=== PATIENT | female | born 1980 | race Caucasian/White ===

== ENCOUNTER 2017-02-24 00:49 | Emergency (ER) | payer BC, SELFPAY | END 2017-02-24 01:45 | disposition home or self-care (01) | PROVIDERS: Emergency Provider Emergency Medicine; Family Provider Nurse Practitioner Family; Visit Provider Emergency Medicine | DX: K11.5 Sialolithiasis (principal); K11.20 Sialoadenitis, unspecified | CPT/HCPCS: 99282 ==

== ENCOUNTER 2017-05-25 15:11 | Emergency (ER) | payer BC, SELFPAY ==
[2017-05-25 15:34] VITALS: BP 126/75; PULSE 95; RESP 20; TEMP 37.2; O2SAT 98; BMI 35.2
[2017-05-25 15:45] LABS: UTC Influenza A Antigen Negative (Negative); UTC Influenza B Antigen Negative (Negative); UTC Strep Screen (Rapid) Negative (Negative)
--- NOTE | 2017-05-25 15:45 | HMH.EDUTC ---
[facility] [place] Clinical Impression: Viral upper respiratory illness Disposition: Home, Self-Care Condition on Discharge: Good Instructions: DI for Viral Upper Respiratory Infection -- Adult, DI for Cough -- Adult Additional Instructions: * Monitor Temp. Tylenol and/or Ibuprofen as needed. ER if fever is no less than 101 despite alternating Tylenol and Ibuprofen * Encourage fluids, water, Gatorade, powerade, pedialyte if infant/toddler/or child * Warm salt water gargles for throat irritation *Warm fluids *Sore throat lozenges *Sleep elevated *humidifier or vaporizer Lots of rest Increase fluids, water, Gatorade, powerade *Your throat swab was sent to lab for culture. Those results area typically sent to your primary care physician. Be sure to follow up in 2-3 days if no improvement so they can review those results and treat if necessary If you dont have primary care I recommend you get one, but in the mean time you will have to return to a walk in clinic Follow up IMMEDIATELY for new or worsening of symptoms OR no noticeable improvement over the next 48-72 hours. 911 immediately for any life threatening symptoms such as chest pain or difficulty breathing Prescriptions: Dextromethorphan Polistirex [Delsym] 10 ml PO Q12H PRN #350 kevin.er.12h PRN Reason: Cough Referrals: Mary Beth Cm APRN [Primary Care Provider] - (in 24 - 48 hours if no improvement or worsening of symptoms) Time of Disposition: 15:52 Medical Decision Making - Medical Records Medical records reviewed: Yes: I reviewed the patient's medical records. - Felipe Inquiry Pt receiving controlled substance: No Felipe was queried for this patient: No Vital Signs: 05/25/17 15:34 Temperature 98.9 F Temperature Source Oral Pulse Rate [Right Brachial] 95 H Respiratory Rate 20 Blood Pressure [Right Arm] 126/75 Blood Pressure Mean [Right Arm] 92 Blood Pressure Source [Right Arm] Automatic Cuff Blood Pressure Position [Right Arm] Sitting 02 Sat by Pulse Oximetry 98 Oxygen Delivery Method Room Air - Lab Data Lab results reviewed: Yes: I reviewed the patient's lab results. Lab Results 05/25/17 15:18: Influenza Type A Ag Negative, Influenza Type B Ag Negative, Strep Scn Rapid Clinic Negative [facility] [place] - General Stated complaint: sore throat, body aches, cough Time Seen by Provider: 05/25/17 15:40 Mode of Arrival: Family Vehicle Source of Information: Patient Limitations: No Limitations Description of Symptoms (Recalled from Triage Doc. by RN): C/OI BODY ACHES,STOMACHACHE, SORE THROAT, HEADACHE, EAR PAIN HEENT Symptoms (Recalled from RN notes): Yes Resp Symptoms (Recalled from RN notes): Yes Skin Symptoms (Recalled from RN notes): No MS Symptoms (Recalled from RN notes): Yes Functional Status (Recalled from RN notes): N/A - History of Present Illness Provider Complaint: Patient state that she has been having body aches, chills, sore throat and cough now for several days that has not improved State that she was worried that she may have the flu. State that she has also been having some nausea along with headache and pain on and off in her ears - Related Data Home Medications Medication Instructions Recorded Confirmed clindamycin HCl 300 mg capsule PO 5 Days #20 05/23/17 levonorgestrel 20 mcg/24 hr (5 1 insert INTRAUTERI ONCE 05/23/17 years) intrauterine device Previous Rx's Medication Instructions Recorded Dextromethorphan Polistirex 10 ml PO Q12H PRN #350 kevin.er.12h 05/25/17 [Delsym] Allergies Allergy/AdvReac Type Severity Reaction Status Date / Time diphenhydramine Allergy Mild Verified 05/23/17 11:11 [DIPHENHYDRAMINE] hydrocodone [From LORTAB] Allergy Mild Verified 05/23/17 11:11 Penicillins [PENICILLINS] Allergy Mild Verified 05/23/17 11:11 tuberculin, purified protein Allergy Mild Verified 05/23/17 11:11 deriva [TUBERCULIN, PURIFIED PROTEIN DERIVA] - Worker's Comp Is t
--- NOTE | 2017-05-25 15:49 | ED_ITS ---
[facility] [place]: Viral upper respiratory illness Disposition: Home, Self-Care Condition on Discharge: Good Instructions: DI for Viral Upper Respiratory Infection -- Adult, DI for Cough - - Adult Additional Instructions: * Monitor Temp. Tylenol and/or Ibuprofen as needed. ER if fever is no less than 101 despite alternating Tylenol and Ibuprofen * Encourage fluids, water, Gatorade, powerade, pedialyte if /toddler/or child * Warm salt water gargles for throat irritation *Warm fluids *Sore throat lozenges *Sleep elevated *humidifier or vaporizer Lots of rest Increase fluids, water, Gatorade, powerade *Your throat swab was sent to lab for culture. Those results area typically sent to your primary care physician. Be sure to follow up in 2-3 days if no improvement so they can review those results and treat if necessary If you don? t have primary care I recommend you get one, but in the mean time you will have to return to a walk in clinic Follow up IMMEDIATELY for new or worsening of symptoms OR no noticeable improvement over the next 48-72 hours. 911 immediately for any life threatening symptoms such as chest pain or difficulty breathing Prescriptions: Dextromethorphan Polistirex [Delsym] 10 ml PO Q12H PRN #350 kevin.er.12h PRN Reason: Cough Referrals: Mary Beth Cm APRN [Primary Care Provider] - (in 24 - 48 hours if no improvement or worsening of symptoms) Time of Disposition: 15:52 Medical Decision Making - Medical Records Medical records reviewed: Yes: I reviewed the patient's medical records. - Felipe Inquiry Pt receiving controlled substance: No Felipe was queried for this patient: No Vital Signs: 05/25/17 15:34 Temperature 98.9 F Temperature Source Oral Pulse Rate [Right Brachial] 95 H Respiratory Rate 20 Blood Pressure [Right Arm] 126/75 Blood Pressure Mean [Right Arm] 92 Blood Pressure Source [Right Arm] Automatic Cuff Blood Pressure Position [Right Arm] Sitting 02 Sat by Pulse Oximetry 98 Oxygen Delivery Method Room Air - Lab Data Lab results reviewed: Yes: I reviewed the patient's lab results. Lab Results 05/25/17 15:18: Influenza Type A Ag Negative, Influenza Type B Ag Negative, Strep Scn Rapid Clinic Negative [facility] [place] - General Stated complaint: sore throat, body aches, cough Time Seen by Provider: 05/25/17 15:40 Mode of Arrival: Family Vehicle Source of Information: Patient Limitations: No Limitations Description of Symptoms (Recalled from Triage Doc. by RN): C/OI BODY ACHES, STOMACHACHE, SORE THROAT, HEADACHE, EAR PAIN HEENT Symptoms (Recalled from RN notes): Yes Resp Symptoms (Recalled from RN notes): Yes Skin Symptoms (Recalled from RN notes): No MS Symptoms (Recalled from RN notes): Yes Functional Status (Recalled from RN notes): N/A - History of Present Illness Provider Complaint: Patient state that she has been having body aches, chills, sore throat and cough now for several days that has not improved State that she was worried that she may have the flu. State that she has also been having some nausea along with headache and pain on and off in her ears - Related Data Home Medications Medication Instructions Recorded Confirmed clindamycin HCl 300 mg capsule PO 5 Days #20 05/23/17 levonorgestrel 20 mcg/24 hr (5 1 insert INTRAUTERI ONCE 05/23/17 years) intrauterine device Previous Rx's
[2017-05-25 16:11] VITALS: BP 124/75; PULSE 90; RESP 20; TEMP 37.1; O2SAT 98
== END 2017-05-25 16:12 | disposition home or self-care (01) ==
PROVIDERS: Emergency Provider Nurse Practitioner; Family Provider Nurse Practitioner Family; PCP Nurse Practitioner Family
DX: J06.9 Acute upper respiratory infection, unspecified (principal); F17.210 Nicotine dependence, cigarettes, uncomplicated; Z88.0 Allergy status to penicillin; Z88.6 Allergy status to analgesic agent
CPT/HCPCS: 87804; 87880; 99202

== ENCOUNTER → 2018-03-03 14:04 | Outpatient (CLI) | payer BC, SELFPAY ==
--- NOTE | 2018-03-03 14:07 | XR_ITS ---
XR knee RT 3V Ordering Physician: Ahsan Charles MD Patient Age: 37 years: Female HISTORY: ITS.REASON: RT ANTERIOR PAIN Injury bowling Saturday night felt pop posterior knee pain. TECHNIQUE: Right knee 3 view COMPARISON :Right knee 09/22/2012 FINDINGS Suggestion of small joint effusion suprapatella bursa. Joint spaces fairly well maintained at both medial lateral compartment on this nonweightbearing film but there is some mild sharpening the joint margins- particularly the medial compartment and superior margin patella . This may reflect early degenerative changes.\ No fracture.No dislocation.Bones well mineralized. Compared to 2013 right knee radiograph appears the patient has lost a significant weight. Less adipose. The knee itself appears stable. There may be a new subtle joint effusion today . IMPRESSION: No no fracture nor dislocation. Joint spaces well-maintained sharp joint margins; and scant early marginal osteophyte formation Suspect small joint effusion I believe now evident. & Was not seen on September 2012 study
== END ==
PROVIDERS: PCP Internal Medicine Adolescent Medicine; Visit Provider Internal Medicine Adolescent Medicine
DX: M25.561 Pain in right knee (principal)
CPT/HCPCS: 73562

== ENCOUNTER → 2018-07-08 07:42 | Outpatient (CLI) | payer BC, SELFPAY ==
--- NOTE | 2018-07-08 07:47 | US_ITS ---
US abdomen complete HISTORY: Left-sided abdominal pain ITS.REASON: ABD PAIN ORDERING PHYSICIAN: Mary Beth Cm APRN PATIENT AGE: 38 years COMPARISON: None FINDINGS: PANCREAS:The pancreas is poorly demonstrated and may be better evaluated with CT if clinically desired LIVER:No focal liver lesions demonstrated. Homogeneous echogenicity. No intrahepatic biliary ductal dilatation evident RIGHT KIDNEY:Unremarkable. Normal size and echogenicity. No hydronephrosis LEFT KIDNEY:Unremarkable. No hydronephrosis. Normal size and echogenicity. GALLBLADDER:Prior cholecystectomy. Common bile duct is mildly prominent at 6 mm but may be related to the postcholecystectomy changes AORTA:No evidence of aneurysmal dilatation. SPLEEN:Unremarkable. Normal size and echogenicity ASCITES:None demonstrated. IMPRESSION: Prior cholecystectomy otherwise negative ultrasound the abdomen. The pancreas is not well demonstrated and may be better evaluated with CT if clinically desired
== END ==
PROVIDERS: PCP Nurse Practitioner Family; Visit Provider Nurse Practitioner Family
DX: R10.9 Unspecified abdominal pain (principal)
CPT/HCPCS: 76700

== ENCOUNTER → 2018-08-12 13:03 | Outpatient (POV) | payer BC, SELFPAY | PROVIDERS: Visit Provider Dermatology | DX: Z00.00 Encounter for general adult medical examination without abnormal findings (principal) ==

== ENCOUNTER → 2018-09-02 07:56 | Outpatient (POV) | payer BC, SELFPAY | PROVIDERS: Visit Provider Dermatology | DX: Z00.00 Encounter for general adult medical examination without abnormal findings (principal) ==

== ENCOUNTER → 2018-09-09 15:14 | Outpatient (POV) | payer BC, SELFPAY | PROVIDERS: Visit Provider Dermatology | DX: Z00.00 Encounter for general adult medical examination without abnormal findings (principal) ==

== ENCOUNTER → 2020-01-08 09:24 | Outpatient (CLI) | payer BC, SELFPAY ==
--- NOTE | 2020-01-08 09:30 | CT_ITS ---
PROCEDURE: CT SOFT TISSUE NECK W CON CLINICAL HISTORY: SIALOADENITIS PAIN RIGHT SIDE OF NECK,,ALOS HX OF SKIN CANCER REMOVAL RIGHT NECK,,SIALOADENITIS COMPARISON: No exams were available for comparison TECHNIQUE: Oral Contrast: None IV Contrast: 75 mL Isovue 370 Axial images obtained with sagittal and coronal reformats. All CT scans at the facility use one or more dose reduction, viz: automated exposure control, ma/kV adjustment per patient size (including targeted exams where dose is matched to indication, i.e. head), or iterative reconstruction technique. FINDINGS: There is mild prominence of the nasopharyngeal mucosa on both sides. Significant artifact is present from patient's dental work. Mild hypertrophy of the lingual tonsils with some increased density between the epiglottis and the base of the tongue which could be due to mucous which is un cleared. Please correlate with direct visualization. There are few scattered small cervical lymph nodes. No evidence of adenopathy. No obvious sialoliths. There is some mild heterogeneous enhancement of the right parotid gland which may be related to sialadenitis. Small nodes are present along the anterior and posterior aspect of both parotid glands. Submandibular glands have an unremarkable appearance. The thyroid gland and glottic area are unremarkable. The lung apices are clear. IMPRESSION: Mild heterogeneous enhancement of the right parotid gland which may be seen with sialadenitis. No sialoliths apparent. No abscess or dominant adenopathy. Increased density between the base of the tongue and the epiglottic area possibly related to a combination of lymphoid hyperplasia and mucous. Direct visualization may confirm Dictated by: Ryder Fernandez MD 01/09/2020 09:57 Ryder Fernandez MD in [place] 01/09/2020 09:57
== END ==
PROVIDERS: PCP Nurse Practitioner Family; Visit Provider Otolaryngology
DX: K11.20 Sialoadenitis, unspecified (principal)
CPT/HCPCS: 70491; Q9967

== ENCOUNTER 2021-12-17 11:52 | Emergency (ER) | payer BC, SELFPAY ==
[2021-12-17 12:05] VITALS: BP 131/77; PULSE 93; RESP 19; TEMP 37; O2SAT 99; BMI 36.7
--- NOTE | 2021-12-17 12:26 | EXP.UTC ---
Discharge Plan Disposition Patient Disposition: Home, Self-Care Condition: Good Prescriptions Prescriptions: New prednisone 20 mg tablet 20 mg PO BID Qty: 10 0RF benzonatate 100 mg capsule 100 mg PO TID PRN (Reason: cough) Qty: 30 0RF No Action levonorgestrel [Mirena] 20 mcg/24 hr (5 years) intrauterine device 1 insert INTRAUTERI ONCE Viibryd 40 mg tablet 40 mg PO Label Comments: TAKE 1 TABLET BY MOUTH EVERY DAY escitalopram oxalate 10 mg tablet 10 mg PO Label Comments: TAKE 1 TABLET BY MOUTH EVERY DAY bupropion HCl 300 mg tablet extended release 24 hr 300 mg PO Referrals Follow up/Referrals: Mary Beth Cm APRN [Primary Care Provider] - See instructions Activity Restrictions/Add. Instructions Additional Instructions/Restrictions: *Monitor Temp, Over the counter Motrin or Tylenol as directed/as needed Tylenol every 4 hours and Motrin every 6 hours (as long as your family doctor has told you that you can take it) for fever or pain. and straight to ER if unable to lower temp less than 101.0 after medication given *Warm salt water gargles may help to soothe the throat *Throat Lozenges? *Warm fluids like tea with honey may help to soothe the throat? *Sleep elevated *Humidifier/Vaporizer Continue taking Augmentin Start oral steriods Return if needed Follow up IMMEDIATELY for new or worsening symptoms or no Noticeable improvement over the next 48-72 hours. 911 for difficulty breathing or swallowing You were tested for today for COVID19 your test result should be back in the next 24-48 hours, you may check your results on the [facility] Clinical Impressions Clinical Impression: Sinusitis Qualifiers: Sinusitis location: unspecified location Chronicity: unspecified Qualified Code(s): J32.9 - Chronic sinusitis, unspecified Stand Alone Forms Stand Alone Forms: Work/School Release Instructions Patient Instructions: Sinusitis, DI for Sinusitis Discharge ED Provider: Stephenie Munson [facility] [place] HPI General Stated complaint: Head/chest congestion, SOA Mode of Arrival: Ambulatory Source of Information: Patient Limitations: No Limitations Time Seen by Provider: 12/17/21 12:26 Description of Symptoms (Recalled from Triage Doc. by RN): PATIENT C/O SINUS INFECTION THAT STARTED 10 DAYS AGO. SHE FINISHED HER ANTIBIOTICS 3 DAYS BUT IS FEELING WORSE AND NOW HAS A COUGH HEENT Symptoms (Recalled from RN notes): Yes Resp Symptoms (Recalled from RN notes): Yes Skin Symptoms (Recalled from RN notes): No MS Symptoms (Recalled from RN notes): No Functional Status (Recalled from RN notes): WNL History of Present Illness Provider Complaint: Patient states that she started with about 10 days ago with sinus infection and seen her PCP this week and was prescribed antiobiotics and has been on them about 3 days and was given a steriod injection but not feeling any better States that her sinus pressure has continued to get worse so today when she was still not feeling any better she came in Related Data Home Medications Medication Instructions Recorded Confirmed levonorgestrel 20 mcg/24 hours (8 1 insert intrauterine ONCE 05/23/17 07/28/21 yrs) 52 mg intrauterine device (Mirena) vilazodone 40 mg tablet (Viibryd) 40 mg PO 01/23/21 07/28/21 bupropion HCl 300 mg 24 hr tablet, 300 mg PO 07/28/21 07/28/21 extended release escitalopram oxalate 10 mg tablet 10 mg PO 07/28/21 07/28/21 Previous Rx's Medication Instructions Recorded benzonatate 100 mg capsule 100 mg PO TID PRN cough #30 caps 12/17/21 prednisone 20 mg tablet 20 mg PO BID #10 tabs 12/17/21 Allergies Allergy/AdvReac Type Severity Reaction Status Date / Time diphenhydramine Allergy Mild Verified 07/28/21 09:29 [DIPHENHYDRAMINE] hydrocodone [From LORTAB] Allergy Mild Verified 07/28/21 09:29 Penicillins [PENICILLINS] Allergy Mild Verified 07/28/21 09:29 tuberculin, purifie
[2021-12-17 12:42] VITALS: BP 131/77; PULSE 93; RESP 19; TEMP 37; O2SAT 99
[2021-12-17 12:49] LABS: Adenovirus,PCR Not Detected (NotDetected); Bordetella Pertussis Not Detected (NotDetected); Chlamydophila Pneumoniae, PCR Not Detected (NotDetected); Coronavirus 19, PCR Not Detected (NotDetected); Coronavirus 229E Not Detected (NotDetected); Coronavirus NL63 Not Detected (NotDetected); Coronavirus OC43 Not Detected (NotDetected); Coronovirus HKU1,PCR Not Detected (NotDetected); Human Metapneumovirus Not Detected (NotDetected); Influenza A, PCR Not Detected (NotDetected); Influenza AH1, 2009 Not Detected (NotDetected); Influenza AH1, PCR Not Detected (NotDetected); Influenza AH3,PCR Not Detected (NotDetected); Influenza B, PCR Not Detected (NotDetected); Mycoplasma Pneumoniae, PCR Not Detected (NotDetected); Parainfluenza 1, PCR Not Detected (NotDetected); Parainfluenza 2, PCR Not Detected (NotDetected); Parainfluenza 3, PCR Not Detected (NotDetected); Parainfluenza 4, PCR Not Detected (NotDetected); Respiratory Syncytial Virus Not Detected (NotDetected)
[2021-12-17 14:10] LABS: Rhinovirus/Enterovirus Detected (NotDetected)
== END 2021-12-17 12:47 | disposition home or self-care (01) ==
PROVIDERS: Emergency Provider Nurse Practitioner; PCP Nurse Practitioner Family
DX: J32.9 Chronic sinusitis, unspecified (principal); B34.1 Enterovirus infection, unspecified
CPT/HCPCS: 87581; 87632; 87798; 99212; C9803; G0463; U0003; U0005

== ENCOUNTER 2022-04-09 05:01 | Emergency (ER) | payer BC, SELFPAY ==
[2022-04-09 05:02] VITALS: BP 123/71; PULSE 90; RESP 20; TEMP 37.2; O2SAT 99; BMI 35.4
[2022-04-09 05:13] VITALS: BMI 35.4
--- NOTE | 2022-04-09 05:14 | CT_ITS ---
PROCEDURE INFORMATION: Exam: CT Abdomen And Pelvis With Contrast Exam date and time: 04/09/2022 6:33 AM Age: 41 years old Clinical indication: Abdominal pain; Generalized; Patient HX: Abd pain, nausea, vomiting, diarrhea TECHNIQUE: Imaging protocol: Computed tomography of the abdomen and pelvis with contrast. Radiation optimization: All CT scans at this facility use at least one of these dose optimization techniques: automated exposure control; mA and/or kV adjustment per patient size (includes targeted exams where dose is matched to clinical indication); or iterative reconstruction. Contrast material: ISOVUE; Contrast volume: 75 ml; Contrast route: IV; Other protocol: This patient has received 0 known CTs and 0 known cardiac nuclear medicine studies in the 12 months prior to the current study. COMPARISON: [facility] US abdomen complete 07/08/2018 7:57 AM FINDINGS: Tubes, catheters and devices: An intrauterine device is present. Lungs: The visualized portions of the lung bases are normal. Heart: There is a 1 cm calcification posterior to the right venous confluence of the left atrium on image 1 suggesting remote granulomatous disease. Liver: There is diffuse mild enlargement of the liver measuring 19 cm sharply defined 1 cm cyst is seen in liver is segment 3 on coronal image 33. There is a similar likely cyst of the right segment 5 on image 3:37. There is a small region of focal fatty infiltration adjacent to the falciform ligament. There is no suggestion of of the liver pathology. Gallbladder and bile ducts: There has been a cholecystectomy. Pancreas: The pancreas is normal. Spleen: The spleen demonstrates punctate calcifications, consistent with remote granulomatous organism exposure. The spleen is otherwise normal. An accessory splenule is present. Adrenal glands: The adrenal glands are normal. Kidneys and ureters: The kidneys are normal. There is no evidence of hydronephrosis. No calculi are identified. Stomach and bowel: Mild diverticulosis is present in the sigmoid and descending colon. There has been a gastric stapling and bypass. There is moderate increase in bowel fluid particularly evident in the right and transverse colon. There is no evidence of wall thickening or surrounding fat stranding to suggest colitis, however. Appendix: A normal appendix is identified. Intraperitoneal space: There is no free intraperitoneal air. Vasculature: Unremarkable. No abdominal aortic aneurysm. Lymph nodes: Unremarkable. No enlarged lymph nodes. Urinary bladder: Unremarkable as visualized. Reproductive: Unremarkable as visualized. Bones/joints: There is pedicle screw fixation at L5-S1 with disc spacer appropriately located.Surgical instrumentation is in stable position and shows no evidence of complications. There are mild degenerative changes of the hip joints. There is no evidence of fracture or destructive process. Soft tissues: Unremarkable. IMPRESSION: 1. There is no evidence of fracture or destructive process. 2. There is moderate increase in bowel fluid particularly evident in the right and transverse colon. There is no evidence of wall thickening or surrounding fat stranding to suggest colitis, however. 3. There is diffuse mild enlargement of the liver measuring 19 cm sharply defined 1 cm cyst is seen in liver is segment 3 on coronal image 33. There is a similar likely cyst of the right segment 5 on image 3:37. There is a small region of focal fatty infiltration adjacent to the falciform ligament. There is no suggestion of of the liver pathology.
[2022-04-09 05:21] LABS: Microscopic, Urine URINE MICROSCOPIC (MICROSCOPIC)
[2022-04-09 05:26] LABS: Appearance,Urine CLEAR (Clear); Blood, Urine Negative (Negative); Color,Urine YELLOW (Yellow); Glucose,Urine (UA) Negative (Negative); Ketones,Urine Negative (Negative); Leukocyte Esterase,Urine Negative (Negative); Nitrate,Urine POSITIVE (Negative); Protein,Urine Negative (Negative); Specific Gravity, Urine >= 1.030 (1.005-1.030); Urobilinogen,Urine 0.2 EU/dl (0.2)
[2022-04-09 05:27] LABS: Urine Pregnancy, HCG Qual. Negative (Negative)
[2022-04-09 05:28] LABS: Bacteria,Urine 2+ /lpf; Bilirubin,Urine 1+ (Negative)
[2022-04-09 05:41] LABS: MANUAL DIFFERENTIAL MANUAL DIFFERENTIAL (MANUAL DIFF)
[2022-04-09 05:42] LABS: Basophils # 0.1 K/mm3 (0-0.2); Basophils % 0.4 % (0.1-2.0); Eosinophils # 0.2 K/mm3 (0.0-0.4); Eosinophils % 1.3 % (0.1-12.0); Hematocrit 40.6 % (37.0-47.0); Hemoglobin 13.1 g/dL (12.2-16.2); Lymphocytes # 1.9 K/mm3 (0.7-4.5); Lymphocytes % 10.5 % (10-50); Mean Corpuscular HGB Conc 32.3 g/dL (31.8-35.4); Mean Corpuscular Hemoglobin 26.9 pg (27.0-31.2); Mean Corpuscular Volume 83.4 fl (81-99); Mean Platelet Volume 8.3 fl (7.4-10.4); Monocytes # 0.6 K/mm3 (0.1-1.0); Monocytes % 3.5 % (1.7-9.3); Neutrophils # 15.5 K/mm3 (1.8-7.8); Neutrophils % 84.3 % (37.0-80.0); Platelet Count 381 K/mm3 (142-424); Red Blood Count 4.87 M/mm3 (4.20-5.40); Red Cell Distribution Width 15.9 % (11.5-17.5); White Blood Count 18.4 K/mm3 (4.8-10.8)
[2022-04-09 05:53] LABS: Alanine Aminotransferase 14 U/L (12-78); Albumin Level 4.3 g/dl (3.5-5.0); Albumin/Globulin Ratio 1.3 (1.1-1.8); Alkaline Phosphatase 59 U/L (38-126); Amylase 95 U/L (30-110); Aspartate Amino Transferase 21 U/L (14-36); Bilirubin,Total 0.4 mg/dl (0.2-1.3); Blood Urea Nitrogen 17 mg/dl (7-17); Calcium 8.8 mg/dl (8.4-10.2); Carbon Dioxide 20 mmol/L (22.0-30.0); Chloride 112 mmol/L (98-107); Creatinine Clearance Estimated 157 mL/min (50-200); Estimated Glomerular Filt Rate 79 ml/min (>60); GFR (African American) 95 ML/MIN (>60); Globulin 3.3 g/dL (1.3-3.2); Glucose 120 mg/dl (74-100); Lipase 88 U/L (23-300); Sodium 138 mmol/L (136-145); Total Protein,Serum 7.6 g/dl (6.3-8.2)
[2022-04-09 05:56] LABS: Lymphocytes % 13 % (10-50); Monocytes % 3 % (2-9); Neutrophils % 84 % (42-76); Total Cells Counted 100
[2022-04-09 05:57] LABS: Hypochromasia 1+; Platelet Estimate Normal
[2022-04-09 05:58] LABS: C-Reactive Protein 2.9 mg/L (0-4)
--- NOTE | 2022-04-09 06:32 | PC.NURSE ---
Pt gone to RAD via wheelchair
--- NOTE | 2022-04-09 06:38 | PC.NURSE ---
Pt back from RAD
[2022-04-09 06:44] VITALS: BP 127/66; PULSE 77; O2SAT 100
[2022-04-09 06:44] LABS: Erythrocyte Sedimentation Rate 13 mm/hr (0-20)
--- NOTE | 2022-04-09 06:44 | PC.NURSE ---
Rechecked pt condition. No needs voiced. Pt advised that she was feeling much better.
--- NOTE | 2022-04-09 06:48 | PC.NURSE ---
Dr. Mackay at BS speaking with pt
--- NOTE | 2022-04-09 06:50 | HMH.EDNVD ---
Discharge Plan Disposition Patient Disposition: Home, Self-Care Prescriptions Prescriptions: New ondansetron 4 mg tablet,disintegrating 4 mg PO Q6H PRN (Reason: nausea and vomiting) Qty: 20 0RF No Action levonorgestrel [Mirena] 20 mcg/24 hr (5 years) intrauterine device 1 insert INTRAUTERI ONCE Viibryd 40 mg tablet 40 mg PO Label Comments: TAKE 1 TABLET BY MOUTH EVERY DAY escitalopram oxalate 10 mg tablet 10 mg PO Label Comments: TAKE 1 TABLET BY MOUTH EVERY DAY bupropion HCl 300 mg tablet extended release 24 hr 300 mg PO prednisone 20 mg tablet 20 mg PO BID Qty: 10 0RF benzonatate 100 mg capsule 100 mg PO TID PRN (Reason: cough) Qty: 30 0RF Referrals Follow up/Referrals: Mary Beth Cm APRN [Primary Care Provider] - See instructions Clinical Impressions Clinical Impression: Gastroenteritis Instructions Patient Instructions: DI for Diarrhea and Traveler's Diarrhea -- Adult, DI for Nausea -- Adult Discharge ED Provider: Thompson (ED)Ney Nausea/Vomiting/Diarrhea HPI General Chief complaint: Nausea/Vomiting/Diarrhea Stated complaint: vomiting, diarrhea, stomach pain Time Seen by Provider: 04/09/22 06:40 Mode of Arrival: Ambulatory Source of Information: Patient Limitations: No Limitations Description of Symptoms (Recalled from ER Triage Doc. by RN): pt CO/N/V/D since 129 the pt states that she had gastric sleeve 7 years ago and gall bladder removed as well. History of Present Illness HPI Narrative: pt with acute vomiting and watery diarrhea this am - hx of child with same - MD complaint: nausea, vomiting, diarrhea and abdominal pain Onset (ago): hour(s) Description of Diarrhea: water Associated Abdominal Pain: Yes Location of pain: diffuse Severity: moderate Quality: cramping Consistency: intermittent Context: sick contacts Associated symptoms: denies other symptoms Related Data Home Medications Medication Instructions Recorded Confirmed levonorgestrel 21 mcg/24 hours (8 1 insert intrauterine ONCE 05/23/17 07/28/21 yrs) 52 mg intrauterine device (Mirena) vilazodone 40 mg tablet (Viibryd) 40 mg PO 01/23/21 07/28/21 bupropion HCl 300 mg 24 hr tablet, 300 mg PO 07/28/21 07/28/21 extended release escitalopram oxalate 10 mg tablet 10 mg PO 07/28/21 07/28/21 Previous Rx's Medication Instructions Recorded benzonatate 100 mg capsule 100 mg PO TID PRN cough #30 caps 12/17/21 prednisone 20 mg tablet 20 mg PO BID #10 tabs 12/17/21 ondansetron 4 mg disintegrating 4 mg PO Q6H PRN nausea and 04/09/22 tablet vomiting #20 tabs Allergies Allergy/AdvReac Type Severity Reaction Status Date / Time diphenhydramine Allergy Mild Verified 07/28/21 09:29 [DIPHENHYDRAMINE] hydrocodone [From LORTAB] Allergy Mild Verified 07/28/21 09:29 Penicillins [PENICILLINS] Allergy Mild Verified 07/28/21 09:29 tuberculin, purified protein Allergy Mild Verified 07/28/21 09:29 deriva [TUBERCULIN, PURIFIED PROTEIN DERIVA] [facility] Disclaimer: The information contained in this section may have been updated after the patient was seen, as this information can be updated by other users. Medical History (Updated 04/09/22 @ 08:18 by Ney Mackay ([email or web address])MD) Anxiety Depression Encounter for gastric sleeve procedure History of gastroesophageal reflux (GERD) Migraine Surgical History (Updated 12/17/21 @ 12:21 by Yuni Giron RN) History of back surgery History of section History of cholecystectomy History of tonsillectomy Social History (Updated 12/17/21 @ 12:21 by Yuni Giron RN) Smoking Status: Current every day smoker alcohol intake: never substance use type: denies use current occupational status: employed Travel in the last 8 weeks: None housing: house ROS Obtained: Yes All systems reviewed & no additional complaints except as documented Physical Exam General Ge
[2022-04-09 07:01] VITALS: BP 122/60; PULSE 101; O2SAT 100
--- NOTE | 2022-04-09 07:57 | PC.NURSE ---
DR WOLFE AT BEDSIDE
[2022-04-09 08:25] VITALS: BP 122/52; PULSE 68; RESP 18; TEMP 36.6
[2022-04-09 09:53] LABS: Adenovirus F 40/41, stool Not Detected (NotDetected); Astrovirus Not Detected (NotDetected); Campylobacter Not Detected (NotDetected); Clostridium Difficile A/B, PCR Not Detected (NotDetected); Cryptosporidium Not Detected (NotDetected); Cyclospora Cayetanesis Not Detected (NotDetected); Entamoeba histolytica Not Detected (NotDetected); Enteroaggregative E coli Not Detected (NotDetected); Enteropathogenic E coli Not Detected (NotDetected); Enterotoxigenic E coli Not Detected (NotDetected); Giardia lamblia Not Detected (NotDetected); Plesimonas Shigalloides, PCR Not Detected (NotDetected); Rotavirus A Not Detected (NotDetected); Salmonella, PCR Not Detected (NotDetected); Sapovirus Not Detected (NotDetected); Shiga-like toxin E coli Not Detected (NotDetected); Shigella Enterovasive E coli Not Detected (NotDetected); Vibrio Cholerae Not Detected (NotDetected); Vibrio, PCR Not Detected (NotDetected); Yersinia Entercolitica, PCR Not Detected (NotDetected)
[2022-04-09 09:55] LABS: Norovirus Detected (NotDetected)
--- NOTE | 2022-04-09 09:58 | PC.NURSE ---
left message with dr. cole office staff about diarrhea panel results
== END 2022-04-09 08:29 | disposition home or self-care (01) ==
PROVIDERS: Emergency Provider Emergency Medicine; PCP Nurse Practitioner Family
DX: K52.9 Noninfective gastroenteritis and colitis, unspecified (principal); F41.9 Anxiety disorder, unspecified; K21.9 Gastro-esophageal reflux disease without esophagitis; G43.909 Migraine, unspecified, not intractable, without status migrainosus; Z98.84 Bariatric surgery status; Z90.49 Acquired absence of other specified parts of digestive tract; F17.210 Nicotine dependence, cigarettes, uncomplicated
CPT/HCPCS: 74177; 80053; 81001; 81025; 82150; 83690; 85007; 85014; 85018; 85048; 85049; 85651; 86140; 87086; 87507; 96361; 96374; 96375; 99285; J2405; Q9967

== ENCOUNTER 2022-07-29 09:42 | Emergency (ER) | payer BC, SELFPAY ==
[2022-07-29 09:50] VITALS: BP 127/67; PULSE 72; RESP 18; TEMP 37.1; O2SAT 99; BMI 35.2
[2022-07-29 10:15] VITALS: BP 127/67; PULSE 72; RESP 18; TEMP 37.1; O2SAT 99
[2022-07-29 10:17] LABS: UTC Strep Screen (Rapid) Negative (Negative)
--- NOTE | 2022-07-29 10:19 | EXP.UTC ---
Discharge Plan Disposition Patient Disposition: Home, Self-Care Condition: Good Prescriptions Prescriptions: New polymyxin B sulf-trimethoprim [Polytrim] 10,000 unit- 1 mg/mL drops 2 drp ophthalmic (eye) Q6H 7 Days Qty: 10 0RF Rx Instructions: right eye while awake; do not exceed 6 doses in 24 hours cefdinir 300 mg capsule 300 mg PO Q12H Qty: 20 0RF benzonatate 100 mg capsule 100 mg PO TID PRN (Reason: cough) Qty: 15 0RF No Action bupropion HCl 300 mg tablet extended release 24 hr 300 mg PO DAILY escitalopram oxalate 10 mg tablet 10 mg PO DAILY Label Comments: TAKE 1 TABLET BY MOUTH ONCE DAILY bupropion HCl 150 mg tablet extended release 24 hr 150 mg PO DAILY Label Comments: TAKE 1 TABLET BY MOUTH EVERY 24 HOURS Referrals Follow up/Referrals: Mary Beth Cm APRN [Primary Care Provider] - See instructions Activity Restrictions/Add. Instructions Additional Instructions/Restrictions: *Monitor Temp, Over the counter Motrin or Tylenol as directed/as needed Tylenol every 4 hours and Motrin every 6 hours (as long as your family doctor has told you that you can take it) for fever or pain. and straight to ER if unable to lower temp less than 101.0 after medication given *Warm salt water gargles may help to soothe the throat *Throat Lozenges? *Warm fluids like tea with honey may help to soothe the throat? *Sleep elevated *Humidifier/Vaporizer *Flonase 2 sprays in each nostril daily but be aware that it may take 2-3 days before you notice improvement Take medication as prescribed Your throat swab was sent for culture. Those results are typically sent to your primary care. Be sure to follow up in 2-3 days with your family doctor/primary care physician if no improvement so they can review those result and treat if necessary. If you don?t have a primary care doctor, I recommend you get one but in the mean time, you will have to return to a walk in clinic Follow up IMMEDIATELY for new or worsening symptoms or no Noticeable improvement over the next 48-72 hours. 911 for difficulty breathing or swallowing Clinical Impressions Clinical Impression: URI (upper respiratory infection), Conjunctivitis Instructions Patient Instructions: Conjunctivitis, Sore Throat Discharge ED Provider: Stephenie Munson [facility] General Stated complaint: Sore throat, ear pain, eye redness Mode of Arrival: Ambulatory Source of Information: Patient Limitations: No Limitations Time Seen by Provider: 07/29/22 10:19 Description of Symptoms (Recalled from Triage Doc. by RN): PATIENT C/O SORE THROAT, EAR PAIN, COUGH, AND EYE DRAINAGE X 2 DAYS HEENT Symptoms (Recalled from RN notes): Yes Resp Symptoms (Recalled from RN notes): Yes Skin Symptoms (Recalled from RN notes): No MS Symptoms (Recalled from RN notes): No Functional Status (Recalled from RN notes): WNL History of Present Illness Provider Complaint: Patient states that she has been having cough, sore throat, redness and drainage in her left eye and ear pain States that her daughter has strep throat and recently had Gamaliel eye so today when she was still not feeling well she came in Related Data Home Medications Medication Instructions Recorded Confirmed bupropion HCl 300 mg 24 hr tablet, 300 mg PO DAILY Anxiety 07/28/21 07/29/22 extended release bupropion HCl 150 mg 24 hr tablet, 150 mg PO DAILY Anxiety 07/29/22 07/29/22 extended release escitalopram oxalate 10 mg tablet 10 mg PO DAILY Anxiety 07/29/22 07/29/22 Previous Rx's Medication Instructions Recorded benzonatate 100 mg capsule 100 mg PO TID PRN cough #15 caps 07/29/22 cefdinir 300 mg capsule 300 mg PO Q12H #20 caps 07/29/22 polymyxin B sulfate 10,000 2 drp ophthalmic (eye) Q6H 7 days 07/29/22 unit-trimethoprim 1 mg/mL eye #10 mL drops (Polytrim) Allergies Allergy/AdvReac Type Severity Reaction Status Date / Time diphenhydramine Allerg
== END 2022-07-29 10:35 | disposition home or self-care (01) ==
PROVIDERS: Emergency Provider Nurse Practitioner; PCP Nurse Practitioner Family
DX: J06.9 Acute upper respiratory infection, unspecified (principal); H66.91 Otitis media, unspecified, right ear; H10.31 Unspecified acute conjunctivitis, right eye; F17.210 Nicotine dependence, cigarettes, uncomplicated; F41.9 Anxiety disorder, unspecified; F32.9 Major depressive disorder, single episode, unspecified
CPT/HCPCS: 87880; 99212; 99214; G0463

== ENCOUNTER 2022-11-14 19:07 | Emergency (ER) | payer BC, SELFPAY ==
[2022-11-14 19:30] VITALS: BP 135/67; PULSE 59; RESP 18; TEMP 36.9; O2SAT 100; BMI 34.4
--- NOTE | 2022-11-14 19:42 | EXP.UTC ---
Discharge Plan Disposition Patient Disposition: Home, Self-Care Condition: Good Prescriptions Prescriptions: New cephalexin 500 mg capsule 500 mg PO QID 7 Days Qty: 28 0RF No Action bupropion HCl 300 mg tablet extended release 24 hr 300 mg PO DAILY buspirone 10 mg tablet 10 mg PO BID azithromycin [Zithromax Z-Brett] 250 mg tablet See Rx Instructions PO .COMPLEX Qty: 6 0RF Rx Instructions: For 250 mg dose pack: take 500 mg today (day 1), then 250 mg for 4 days (days 2-5) PO prednisone 20 mg tablet 20 mg PO BID 5 Days Qty: 10 0RF escitalopram oxalate 10 mg tablet 10 mg PO DAILY Patient Comments: TAKE 1 TABLET BY MOUTH ONCE DAILY bupropion HCl 150 mg tablet extended release 24 hr 150 mg PO DAILY Patient Comments: TAKE 1 TABLET BY MOUTH EVERY 24 HOURS Referrals Follow up/Referrals: Mary Beth Cm APRN [Primary Care Provider] - See instructions Activity Restrictions/Add. Instructions Additional Instructions/Restrictions: Keep the wound clean and dry. Watch the wound for signs of infection, such as redness, swelling, drainage, fever. etc. Take tylenol or ibuprofen for pain. Follow up with your regular doctor. GO TO THE ER FOR ANY WORSENING SYMPTOMS OR CONCERNS. Clinical Impressions Clinical Impression: Laceration of right middle finger, Need for Tdap vaccination Instructions Patient Instructions: DI for Laceration Repair -- Simple, DI for Laceration Repair-Skin Glue, Tetanus, Diphtheria, Pertussis (Tdap) Vaccine Discharge ED Provider: Pancho Toussaint [facility] General Stated complaint: [id number] lac R finger Time Seen by Provider: 11/14/22 19:42 History of Present Illness Provider Complaint: She states that she was cutting vegetables on a mandarin when she slipped and cut her right middle finger. Her tetanus immunization is not up to date. Related Data Home Medications Medication Instructions Recorded Confirmed bupropion HCl 300 mg 24 hr tablet, 300 mg PO DAILY Anxiety 07/28/21 10/12/22 extended release bupropion HCl 150 mg 24 hr tablet, 150 mg PO DAILY Anxiety 07/29/22 10/12/22 extended release escitalopram oxalate 10 mg tablet 10 mg PO DAILY Anxiety 07/29/22 10/12/22 buspirone 10 mg tablet 10 mg PO BID 10/12/22 10/12/22 Previous Rx's Medication Instructions Recorded azithromycin 250 mg tablet See Rx Instructions PO .COMPLEX #6 10/12/22 (Zithromax Z-Brett) tabs prednisone 20 mg tablet 20 mg PO BID 5 days #10 tabs 10/12/22 cephalexin 500 mg capsule 500 mg PO QID 7 days #28 caps 11/14/22 Allergies Allergy/AdvReac Type Severity Reaction Status Date / Time diphenhydramine Allergy Mild Verified 11/14/22 19:52 [DIPHENHYDRAMINE] hydrocodone [From LORTAB] Allergy Mild Verified 11/14/22 19:52 Penicillins [PENICILLINS] Allergy Mild Verified 11/14/22 19:52 tuberculin, purified protein Allergy Mild Verified 11/14/22 19:52 deriva [TUBERCULIN, PURIFIED PROTEIN DERIVA] [facility] Disclaimer: The information contained in this section may have been updated after the patient was seen, as this information can be updated by other users. Medical History Anxiety Depression Encounter for gastric sleeve procedure History of gastroesophageal reflux (GERD) Migraine Surgical History History of back surgery History of section History of cholecystectomy History of tonsillectomy Social History Smoking Status: Current every day smoker alcohol intake: never substance use type: denies use current occupational status: employed Travel in the last 8 weeks: None housing: house ROS Obtained: Yes All systems reviewed & no additional complaints except as documented Constitutional Constitutional: Denies chills and Denies fever(s) Eyes
[2022-11-14 20:37] VITALS: BP 135/67; PULSE 59; RESP 18; TEMP 36.9; O2SAT 100
== END 2022-11-14 20:37 | disposition home or self-care (01) ==
PROVIDERS: Emergency Provider Nurse Practitioner Family; PCP Nurse Practitioner Family
DX: S61.212A Laceration without foreign body of right middle finger without damage to nail, initial encounter (principal); F17.210 Nicotine dependence, cigarettes, uncomplicated; F41.9 Anxiety disorder, unspecified; F32.A Depression, unspecified; Z23 Encounter for immunization; W26.8XXA Contact with other sharp object(s), not elsewhere classified, initial encounter
CPT/HCPCS: 12001; 90715; 96372; 99213; 99214; G0463

== ENCOUNTER → 2022-11-28 11:15 | Outpatient (CLI) | payer BC, SELFPAY ==
[2022-11-28 11:18] LABS: Coronavirus 19, PCR Not Detected (NotDetected); Influenza A, PCR Not Detected (NotDetected); Influenza B, PCR Not Detected (NotDetected)
== END ==
PROVIDERS: PCP Nurse Practitioner Family; Visit Provider Nurse Practitioner Family
DX: J02.9 Acute pharyngitis, unspecified (principal); J06.9 Acute upper respiratory infection, unspecified
CPT/HCPCS: 87070; 87636

== ENCOUNTER → 2023-03-01 14:28 | Outpatient (CLI) | payer BC, SELFPAY ==
--- NOTE | 2023-03-01 14:32 | XR_ITS ---
FINAL REPORT CLINICAL HISTORY: LT FOOT PAIN FINDINGS: Left foot Three views were obtained. There is no acute fracture or dislocation. The joint spaces appear normal. No soft tissue abnormality is identified. There is a minimal plantar spur. IMPRESSION: No acute process. Reviewed, Interpreted and Dictated by Zack Olmstead MD Transcribed by Lia Galaviz Authenticated and [facility]
== END ==
LOC: RAD 14:30
PROVIDERS: PCP Nurse Practitioner Family; Visit Provider Podiatrist Foot & Ankle Surgery
DX: M79.672 Pain in left foot (principal)
CPT/HCPCS: 73630

== ENCOUNTER 2023-04-23 07:37 | Outpatient (CLI) | payer BC, SELFPAY ==
[2023-04-23 08:25] LABS: Basophils # 0.1 K/mm3 (0-0.2); Basophils % 0.7 % (0.1-2.0); Eosinophils # 0.2 K/mm3 (0.0-0.4); Eosinophils % 2.6 % (0.1-12.0); Hematocrit 39.1 % (37.0-47.0); Hemoglobin 12.7 g/dL (12.2-16.2); Lymphocytes # 2.5 K/mm3 (0.7-4.5); Lymphocytes % 36.5 % (10-50); Mean Corpuscular HGB Conc 32.5 g/dL (31.8-35.4); Mean Corpuscular Hemoglobin 29.7 pg (27.0-31.2); Mean Corpuscular Volume 91.4 fl (81-99); Mean Platelet Volume 8.9 fl (7.4-10.4); Monocytes # 0.4 K/mm3 (0.1-1.0); Monocytes % 5.4 % (1.7-9.3); Neutrophils # 3.7 K/mm3 (1.8-7.8); Neutrophils % 54.8 % (37.0-80.0); Platelet Count 243 K/mm3 (142-424); Red Blood Count 4.28 M/mm3 (4.20-5.40); Red Cell Distribution Width 14.1 % (11.5-17.5); White Blood Count 6.8 K/mm3 (4.8-10.8)
[2023-04-23 08:55] LABS: Hemoglobin A1C 5.2 % (4.0-6.0)
[2023-04-23 09:08] LABS: Alanine Aminotransferase 10 U/L (12-78); Albumin Level 3.7 g/dl (3.5-5.0); Albumin/Globulin Ratio 1.4 (1.1-1.8); Alkaline Phosphatase 55 U/L (38-126); Anion Gap 7.5 mEq/L (5-15); Aspartate Amino Transferase 20 U/L (14-36); Bilirubin,Total 0.4 mg/dl (0.2-1.3); Blood Urea Nitrogen 11 mg/dl (7-17); Calcium 9.3 mg/dl (8.4-10.2); Carbon Dioxide 29 mmol/L (22.0-30.0); Chloride 108 mmol/L (98-107); Chol/HDL Ratio 3.1 (1-3.5); Cholesterol 185 mg/dl (140-200); Estimated Glomerular Filt Rate 68 ml/min (>60); GFR (African American) 83 ML/MIN (>60); Globulin 2.6 g/dL (1.3-3.2); Glucose 80 mg/dl (74-100); HDL Cholesterol 60 mg/dl (40-60); Potassium 4.5 mmoL/L (3.5-5.1); Sodium 140 mmol/L (136-145); Total Protein,Serum 6.3 g/dl (6.3-8.2); Triglycerides 55 mg/dl (30-150); VLDL Cholesterol 11 mg/dL (0-40)
[2023-04-23 09:19] LABS: Direct LDL Cholesterol 94.23 mg/dL (100-129)
[2023-04-23 09:25] LABS: 25-OH Vitamin D, Total 29.9 ng/mL (30-100)
[2023-04-23 09:39] LABS: Thyroid Stimulating Hormone 1.78 uIU/mL (0.465-4.68)
[2023-04-23 09:58] LABS: Vitamin B12 202 pg/mL (239-931)
[2023-04-23 11:13] LABS: Ferritin 6.02 ng/ml (6.24-137)
== END 2023-04-23 23:59 ==
PROVIDERS: PCP Nurse Practitioner Family; Visit Provider Nurse Practitioner Family
DX: E55.9 Vitamin D deficiency, unspecified (principal); E53.8 Deficiency of other specified B group vitamins; E61.1 Iron deficiency; Z79.899 Other long term (current) drug therapy
CPT/HCPCS: 36415; 80053; 80061; 82306; 82607; 82728; 83036; 84443; 85025

== ENCOUNTER 2023-04-29 15:42 | Outpatient (CLI) | payer BC, SELFPAY ==
--- NOTE | 2023-04-29 15:47 | MR_ITS ---
FINAL REPORT TECHNIQUE: Multi planar MR imaging was performed through the left foot. CLINICAL HISTORY: CYST AND INJURY. CYST ON DORSAL ASPECT OF FOOT. PUT MARKER ON CPOT. LATERAL SIDED FOOT PAIN. COMPARISON: None FINDINGS: Bone marrow signal intensity is preserved without edema, fracture or pathologic marrow replacement. There is mild degenerative joint disease predominantly in the midfoot. The Lisfranc joint is intact. The Lisfranc ligament is intact. There is abnormal signal intensity in the distal Achilles tendon most consistent with tendinosis. There is no full-thickness tear. There may be a very small partial insertional tear. The tendons at the ankle appear intact. The flexor and extensor tendons to the toes are intact. The plantar fascia is normal. There is nonspecific soft tissue edema along the dorsal lateral forefoot at the marker placed at the area of interest. No discrete mass seen. Remaining soft tissues are without acute abnormality. IMPRESSION: No acute osseous abnormality. Achilles tendinosis with a very small partial insertional tear. Nonspecific edema at the marker placed as area of abnormality. Reviewed, Interpreted and Dictated by Clementine Johnson MD Transcribed by Fidelia Ugalde Authenticated and [facility]
== END 2023-04-29 23:59 ==
LOC: RAD 15:42
PROVIDERS: PCP Nurse Practitioner Family; Visit Provider Orthopaedic Surgery Adult Reconstructive Orthopaedic Surgery
DX: M79.672 Pain in left foot (principal)
CPT/HCPCS: 73718

== ENCOUNTER 2023-07-05 18:00 | Outpatient (CLI) | payer BC, SELFPAY ==
[2023-07-05 18:54] LABS: Alanine Aminotransferase 8 U/L (12-78); Albumin Level 3.8 g/dl (3.5-5.0); Albumin/Globulin Ratio 1.4 (1.1-1.8); Alkaline Phosphatase 59 U/L (38-126); Anion Gap 7.7 mEq/L (5-15); Aspartate Amino Transferase 19 U/L (14-36); Bilirubin,Total 0.7 mg/dl (0.2-1.3); Blood Urea Nitrogen 8 mg/dl (7-17); Calcium 9.6 mg/dl (8.4-10.2); Carbon Dioxide 29 mmol/L (22.0-30.0); Chloride 109 mmol/L (98-107); Estimated Glomerular Filt Rate 68 ml/min (>60); GFR (African American) 82 ML/MIN (>60); Globulin 2.7 g/dL (1.3-3.2); Glucose 70 mg/dl (74-100); Potassium 4.7 mmoL/L (3.5-5.1); Sodium 141 mmol/L (136-145); Total Protein,Serum 6.5 g/dl (6.3-8.2)
== END 2023-07-05 23:59 | disposition home or self-care (01) ==
LOC: LAB.DROPOF 07-06 09:11
PROVIDERS: PCP Student in an Organized Health Care Education/Training Program; Visit Provider Student in an Organized Health Care Education/Training Program
DX: B96.29 Other Escherichia coli [E. coli] as the cause of diseases classified elsewhere; N39.0 Urinary tract infection, site not specified; R10.9 Unspecified abdominal pain; R30.0 Dysuria
CPT/HCPCS: 80053; 87086

== ENCOUNTER 2023-07-07 21:29 | Emergency (ER) | payer BC, SELFPAY ==
[2023-07-07 21:30] VITALS: BP 121/77; PULSE 91; RESP 20; TEMP 36.4; O2SAT 95; BMI 34.0
--- NOTE | 2023-07-07 21:51 | ED_ITS ---
Discharge Plan Disposition Patient Disposition: Home, Self-Care Condition: Good Prescriptions Prescriptions: New diazepam [Valium] 5 mg tablet 5 mg PO BID PRN (Reason: back pain) Qty: 6 0RF naproxen 500 mg tablet 500 mg PO TID PRN (Reason: pain) Qty: 20 0RF No Action buspirone 5 mg tablet 5 mg PO phenazopyridine 100 mg tablet 100 mg PO QPC PRN (Reason: pain) Qty: 6 1RF nitrofurantoin monohyd/m-cryst 100 mg capsule 100 mg PO Q12H 7 Days Qty: 14 0RF Rx Instructions: must administer with a meal/food bupropion HCl 300 mg tablet extended release 24 hr 300 mg PO DAILY Wegovy 0.25 mg/0.5 mL pen injector 0.25 mg SQ WEEKLY tramadol 50 mg tablet 50 mg PO PRN Mirena 21 mcg/24 hours (8 yrs) 52 mg intrauterine device 1 device intrauterine escitalopram oxalate 10 mg tablet 10 mg PO DAILY Patient Comments: TAKE 1 TABLET BY MOUTH ONCE DAILY bupropion HCl 150 mg tablet extended release 24 hr 150 mg PO DAILY Patient Comments: TAKE 1 TABLET BY MOUTH EVERY 24 HOURS Referrals Follow up/Referrals: Mary Beth Cm APRN [Primary Care Provider] - See instructions Hayder Brunson MD [Referring] - See instructions Activity Restrictions/Add. Instructions Additional Instructions/Restrictions: Take medications as prescribed and follow-up closely with orthopedics for con tinued evaluation and management. Return for any new or worsening symptoms. Clinical Impressions Clinical Impression: Back pain Qualifiers: Back pain location: low back pain Chronicity: unspecified Instructions Patient Instructions: DI for Low Back Pain Discharge ED Provider: Tania Blanca Adult [facility] General Chief complaint: Back Pain/Injury Stated complaint: back pain Time Seen by Provider: 07/07/23 21:34 Mode of Arrival: Ambulatory Source of Information: Patient Limitations: No Limitations Description of Symptoms (Recalled from ER Triage Doc. by RN): pt is here today for back pain, pt has hx of 3 back surgeries. she reports two days ago started having pain under right shoulder pain and now it is all across low back and down left leg. pt can still pee and poop without difficulties History of Present Illness HPI narrative: Patient is a 43-year-old female with past medical history chronic back pain status post 3 spinal procedures presenting with back pain for 2 days. She states that it initially started under the right shoulder blade and now extends across her low back and down the left leg. She denies any known provoking trauma or inciting event. Denies any fevers or chills, does have some nausea due to the pain. Denies any saddle anesthesia, bowel or bladder incontinence. She took Motrin and Tylenol for the pain earlier today but has not had anything recently. Related Data Home Medications Medication Instructions Recorded Confirmed bupropion HCl 300 mg 24 hr tablet, 300 mg PO DAILY Anxiety 07/28/21 07/05/23 extended release bupropion HCl 150 mg 24 hr tablet, 150 mg PO DAILY Anxiety 07/29/22 07/05/23 extended release escitalopram oxalate 10 mg tablet 10 mg PO DAILY Anxiety 07/29/22 07/05/23 levonorgestrel 21 mcg/24 hours (8 1 device intrauterine 05/02/23 07/05/23 yrs) 52 mg intrauterine device (Mirena) semaglutide (weight loss) 0.25 0.25 mg SQ WEEKLY 05/02/23 07/05/23 mg/0.5 mL subcutaneous pen injector (Wegovy) tramadol 50 mg tablet 50 mg PO PRN 05/02/23 07/05/23 buspirone 5 mg tablet 5 mg PO 07/05/23 07/05/23 Previous Rx's Medication Instructions Recorded nitrofurantoin 100 mg PO Q12H 7 days #14 caps 07/05/23 monohydrate/macrocrystals 100 mg capsule phenazopyridine 100 mg tablet 100 mg PO QPC PRN pain 6 doses #6 07/05/23 tabs diazepam 5 mg tablet (Valium) 5 mg PO BID PRN back pain #6 tabs 07/07/23 naproxen 500 mg tablet 500 mg PO TID PRN pain #20 tabs 07/07/23 Allergies Allergy/AdvReac Type Severity Reaction Status Date / Time diphenhydramine Allergy Mild Verified 07/05/23 08:11 [DIPHENHYDRAMINE] hydrocodone [From LORTAB] Allergy Mild Verified 07/05/23 08:11 Penicillins [PENICILLINS] Allergy Mild Verified 07/05/23 08:11 tuberculin, purified protein Allergy Mild Verified 07/05/23 08:11 deriva [TUBERCULIN, PURIFIED PROTEIN DERIVA] [facility] Disclaimer: The information contained in this section may have been updated after the patient was seen, as this information can be updated by other users. Medical History Encounter for gastric sleeve procedure Depression Anxiety History of gastroesophageal reflux (GERD) Migraine Surgical History History of back surgery History of tonsillectomy History of section History of cholecystectomy Social History Smoking Status: Current every day smoker alcohol intake: never substance use type: denies use current occupational status: employed Travel in the last 8 weeks: None housing: house ROS Obtained: Yes Systems reviewed as appropriate & no additional complaints except as documented Physical Exam General General appearance: alert and in no apparent distress (Though appears uncomfortable sitting on bedside chair) Respiratory Respiratory exam: Present normal lung sounds bilaterally; Absent respiratory distress Cardiovascular Cardiovascular exam: Present regular rate and normal rhythm Back Exam Back exam: Present normal inspection (Healed midline incision sites over lower spine), tenderness (No tenderness over midline spine) and paraspinal tenderness (Right-sided paraspinal tenderness adjacent to right shoulder blade, bilateral paraspinal tenderness adjacent to L-spine, no erythema and no tenderness over midline spine) Neurological Exam Neurological exam: Present alert and oriented X3 Skin Skin exam: Present warm and dry Medical Decision Making Medical Records Medical records reviewed: Yes I reviewed the patient's medical records. Felipe Inquiry Pt receiving controlled substance: No Vital Signs: 07/07/23 21:30 Temperature 97.6 F Temperature Source Oral Pulse Rate [Right Radial] 91 H Respiratory Rate 20 Blood Pressure [Right Arm] 121/77 Blood Pressure Mean [Right Arm] 91 02 Sat by Pulse Oximetry 95 Oxygen Delivery Method Room Air Orders (Tests/Meds): ED MEDICATIONS Discontinued Medications Generic Name Dose Route Start Last Admin Trade Name Freq PRN Reason Stop Dose Admin Acetaminophen 1,000 mg 07/07/23 21:47 07/07/23 22:12 Acetaminophen 500mg Tab PO 07/07/23 21:48 1,000 mg ONCE ONE Administration Diazepam 5 mg 07/07/23 21:47 07/07/23 22:13 Diazepam 5mg Tablet PO 07/07/23 21:48 5 mg ONCE ONE Administration Ketorolac Tromethamine 30 mg 07/07/23 21:47 07/07/23 22:13 Ketorolac 30mg/Ml Vial IM 07/07/23 21:48 30 mg ONCE ONE Administration Methocarbamol 1,500 mg 07/07/23 21:48 07/07/23 22:12 Methocarbamol 500mg Tablet PO 07/07/23 21:49 1,500 mg ONCE ONE Administration Ondansetron HCl 4 mg 07/07/23 21:47 07/07/23 22:17 Ondansetron 4mg Odt SL 07/07/23 21:48 4 mg ONCE ONE Administration Medical Decision Narrative: Patient is a 43-year-old female with past medical history chronic low back pain for which she has had 3 spinal procedures presenting with acute on chronic back pain worsening over the past 2 days. Initially started under the right shoulder blade that radiated to the lower back and down the left leg. She does appear uncomfortable but in no acute distress, nontoxic-appearing and hemodynamically stable. She does not have any midline spinal tenderness to palpation, does have some right paraspinal tenderness adjacent to the right scapula and paraspinal lumbosacral tenderness without erythema, ecchymosis and denies any traumas and was ambulatory to the ED. Discussed despite history low concern for canal abnormality and especially given tenderness and symptoms with reassuring/no red flag symptoms feel pain more likely musculoskeletal and discussed with patient treating patient's symptoms with medications to which patient is in agreement. Will provide medications and reevaluate for symptomatic relief. Given Valium, Tylenol, Toradol, Zofran, Robaxin. On reevaluation patient did have some improvement in symptoms. We discussed that she will likely continue to have symptom relief all medications metabolize. Will prescribe patient medications for home use as well and referred to orthopedic for continued management. Patient agreeable with plan. Discharged in stable condition. Critical Care Critical Care Time Critical Care Time: No
[2023-07-07] MEDS: ACETAMINOPHEN 500MG TAB 1000 MG PO (22:12)
[2023-07-07] MEDS: METHOCARBAMOL 500MG TABLET 1500 MG PO (22:12)
[2023-07-07] MEDS: KETOROLAC 30MG/ML VIAL 30 MG IM (22:13)
[2023-07-07] MEDS: diazePAM 5MG TABLET 5 MG PO (22:13)
[2023-07-07] MEDS: ONDANSETRON 4MG ODT 4 MG SL (22:17)
[2023-07-07 23:13] VITALS: BP 123/81; PULSE 86; RESP 16; TEMP 36.6; O2SAT 97
== END 2023-07-07 23:14 | disposition home or self-care (01) ==
PROVIDERS: Emergency Provider Emergency Medicine; PCP Nurse Practitioner Family
DX: M54.50 Low back pain, unspecified (principal)
CPT/HCPCS: 96372; 99283

== ENCOUNTER 2023-07-12 07:59 | Emergency (ER) | payer BC, SELFPAY ==
[2023-07-12 08:05] VITALS: BP 127/74; PULSE 57; RESP 18; TEMP 36.6; O2SAT 100; BMI 34.3
--- NOTE | 2023-07-12 08:18 | XR_ITS ---
FINAL REPORT CLINICAL HISTORY: dog bite wound on posterior metacarpal area COMPARISON: None FINDINGS: RIGHT HAND: 3 views of the right hand were obtained. There is no acute fracture or dislocation. Visualized joint spaces are normally aligned. There is dorsal soft tissue swelling and foci of air in the dorsal soft tissues. IMPRESSION: No acute bony abnormality. Dorsal soft tissue swelling and foci of air in the dorsal soft tissues. Reviewed, Interpreted and Dictated by Jace Light III, MD Transcribed by Shy Oh Authenticated and [facility]
--- NOTE | 2023-07-12 08:28 | ED_ITS ---
Discharge Plan Disposition Patient Disposition: Home, Self-Care Condition: Good Prescriptions Prescriptions: New mupirocin 2 % ointment 1 applic topical TID 7 Days Qty: 15 0RF amoxicillin-pot clavulanate 875-125 mg Tablet 1 tab PO Q12H 7 Days Qty: 14 0RF No Action buspirone 5 mg tablet 5 mg PO DAILY phenazopyridine 100 mg tablet 100 mg PO QPC PRN (Reason: pain) Qty: 6 1RF nitrofurantoin monohyd/m-cryst 100 mg capsule 100 mg PO Q12H 7 Days Qty: 14 0RF Rx Instructions: must administer with a meal/food bupropion HCl 300 mg tablet extended release 24 hr 300 mg PO DAILY Wegovy 0.25 mg/0.5 mL pen injector 0.25 mg SQ WEEKLY Mirena 21 mcg/24 hours (8 yrs) 52 mg intrauterine device 1 device intrauterine ONCE escitalopram oxalate 10 mg tablet 10 mg PO DAILY Patient Comments: TAKE 1 TABLET BY MOUTH ONCE DAILY bupropion HCl 150 mg tablet extended release 24 hr 150 mg PO DAILY Patient Comments: TAKE 1 TABLET BY MOUTH EVERY 24 HOURS diazepam [Valium] 5 mg tablet 5 mg PO BID PRN (Reason: back pain) Qty: 6 0RF naproxen 500 mg tablet 500 mg PO TID PRN (Reason: pain) Qty: 20 0RF Referrals Follow up/Referrals: Logan Brunson DO [Staff Physician] - See instructions Mary Beth Cm APRN [Primary Care Provider] - See instructions Activity Restrictions/Add. Instructions Additional Instructions/Restrictions: Keep the wound clean and dry. Keep a dressing on it if you are going to be getting it dirty. Watch the wound for signs of infection, such as redness, swelling, drainage, fever. etc. Take tylenol or ibuprofen for pain. Follow up with your regular doctor. GO TO THE ER FOR ANY WORSENING SYMPTOMS OR CONCERNS. I put in a referral to orthopedics (Dr. Brunson). Sometimes with dog bites you can have tendon injuries. It does not appear that you have one, but if you continue to have pain or stiffness of your hand please follow up with orthopedics. His office phone number will be on this paperwork. Clinical Impressions Clinical Impression: Dog bite of right hand Instructions Patient Instructions: Amoxicillin and Clavulanic Acid, Mupirocin, DI for Dog Bite Discharge ED Provider: Pancho Toussaint [facility] [place] HPI General Stated complaint: right hand injury Mode of Arrival: Ambulatory Source of Information: Patient Limitations: No Limitations Time Seen by Provider: 07/12/23 08:27 Description of Symptoms (Recalled from Triage Doc. by RN): Pt was bitten by her dog breaking up a fight. She states that dog is up to date on shots. She had a tetnus shot last year. She has abrasions on right hand, and swollen. HEENT Symptoms (Recalled from RN notes): No Resp Symptoms (Recalled from RN notes): No Skin Symptoms (Recalled from RN notes): Yes MS Symptoms (Recalled from RN notes): Yes Functional Status (Recalled from RN notes): n/a History of Present Illness Provider Complaint: She has a dog bite on her right hand. Her dogs were playing with a tennis ball when one accidentally bit her. Her tetanus immunization is up to date. The dog's shots are all up to date. Related Data Home Medications Medication Instructions Recorded Confirmed bupropion HCl 300 mg 24 hr tablet, 300 mg PO DAILY Anxiety 07/28/21 07/12/23 extended release bupropion HCl 150 mg 24 hr tablet, 150 mg PO DAILY Anxiety 07/29/22 07/12/23 extended release escitalopram oxalate 10 mg tablet 10 mg PO DAILY Anxiety 07/29/22 07/12/23 levonorgestrel 21 mcg/24 hr (up to 1 device intrauterine ONCE 05/02/23 07/12/23 8 years) 52 mg intrauterine device (Mirena) semaglutide (weight loss) 0.25 0.25 mg SQ WEEKLY 05/02/23 07/12/23 mg/0.5 mL subcutaneous pen injector (Wegovy) buspirone 5 mg tablet 5 mg PO DAILY 07/05/23 07/12/23 Previous Rx's Medication Instructions Recorded nitrofurantoin 100 mg PO Q12H 7 days #14 caps 07/05/23 monohydrate/macrocrystals 100 mg capsule phenazopyridine 100 mg tablet 100 mg PO QPC PRN pain 6 doses #6 07/05/23 tabs diazepam 5 mg tablet (Valium) 5 mg PO BID PRN back pain #6 tabs 07/07/23 naproxen 500 mg tablet 500 mg PO TID PRN pain #20 tabs 07/07/23 amoxicillin 875 mg-potassium 1 tab PO Q12H 7 days #14 tabs 07/12/23 clavulanate 125 mg tablet mupirocin 2 % topical ointment 1 applic topical TID 7 days #15 07/12/23 grams Allergies Allergy/AdvReac Type Severity Reaction Status Date / Time diphenhydramine Allergy Mild Verified 07/12/23 08:19 [DIPHENHYDRAMINE] hydrocodone [From LORTAB] Allergy Mild Verified 07/12/23 08:19 Penicillins [PENICILLINS] Allergy Mild Verified 07/12/23 08:19 tuberculin, purified protein Allergy Mild Verified 07/12/23 08:19 deriva [TUBERCULIN, PURIFIED PROTEIN DERIVA] Worker's Comp Is this a Worker's Comp case?: No [facility] Disclaimer: The information contained in this section may have been updated after the patient was seen, as this information can be updated by other users. Medical History Encounter for gastric sleeve procedure Depression Anxiety History of gastroesophageal reflux (GERD) Migraine Surgical History History of back surgery History of tonsillectomy History of section History of cholecystectomy Social History Smoking Status: Current every day smoker alcohol intake: never substance use type: denies use current occupational status: employed Travel in the last 8 weeks: None housing: house ROS Obtained: Yes All systems reviewed & no additional complaints except as documented Constitutional Constitutional: Denies chills and Denies fever(s) Eyes Eyes: Denies eye discharge ENT Ears, Nose, Mouth, and Throat: Denies dizziness, Denies otalgia and Denies sore throat Cardiovascular Cardiovascular: Denies chest pain Respiratory Respiratory: Denies shortness of breath, Denies chest congestion, Denies cough, Denies stridor and Denies wheezing Gastrointestinal Gastrointestingal: Denies nausea or vomiting Musculoskeletal Musculoskeletal: Reports as per HPI Integumentary/Breasts Skin/Breast: Denies rash Neurologic Neurologic: Denies dizziness and Denies paresthesias Allergic/Immunologic Allergic/Immunologic: Denies wheezing Physical Exam General General appearance: alert and in no apparent distress Head Head exam: atraumatic, normocephalic and normal inspection Eye Eye exam: Present normal appearance, PERRL and EOMI ENT ENT exam: Present normal exam, normal oropharynx, mucous membranes moist, TM's normal bilaterally and normal external ear exam Neck Neck exam: Present normal inspection, full ROM and trachea midline; Absent meningismus or lymphadenopathy Chest Chest inspection: Present normal inspection and symmetric chest wall rise; Absent tenderness Respiratory Respiratory exam: Present normal lung sounds bilaterally; Absent respiratory distress Cardiovascular Cardiovascular exam: Present regular rate and normal rhythm; Absent JVD Abdominal Exam Abdominal exam: Present soft and normal bowel sounds; Absent distention, tenderness or guarding Extremities Exam Extremities exam: Present normal capillary refill; Absent calf tenderness Expanded Upper Extremity Exam Right: Forearm/Wrist exam: Present normal inspection and full ROM; Absent tenderness, tenderness over anatomical snuff box or pain with axial thumb loading Hand exam: Present full ROM, tenderness, swelling and laceration; Absent abrasion, skin avulsion, ecchymosis, deformity, crepitus, dislocation, erythema, amputation, nail avulsion or subungual hematoma Neuromotor exam: Normal wrist extension, thumb opposition, thumb IP flexion, thumb adduction and fingers 2-5 abduction Neurosensory exam: Normal radial nerve, ulnar nerve and median nerve Vascular exam: Normal capillary refill, radial pulse and ulnar pulse Back Exam Back exam: Present normal inspection; Absent tenderness Neurological Exam Neurological exam: Present alert and oriented X3 Psychiatric Psychiatric exam: Present normal affect and normal mood Skin Skin exam: Present warm, dry, intact and normal color Lymphatic Lymphatic Findings: no adenopathy Medical Decision Making Medical Records Medical records reviewed: No I reviewed the patient's medical records. Felipe Inquiry Pt receiving controlled substance: No Vital Signs: 07/12/23 08:05 Temperature 97.9 F Temperature Source Oral Pulse Rate [Right Radial] 57 L Respiratory Rate 18 Blood Pressure [Right Arm] 127/74 Blood Pressure Mean [Right Arm] 91 Blood Pressure Source [Right Arm] Automatic Cuff Blood Pressure Position [Right Arm] Sitting 02 Sat by Pulse Oximetry 100 Oxygen Delivery Method Room Air Orders (Tests/Meds): ORDERS Category Date Time Status XR hand RT min 3V Stat Exams 07/12/23 08:18 Ordered Medical Decision Narrative: the puncture wounds were not stitched because it has been approx 12 hours since the dog bite occurred.
[2023-07-12 09:17] VITALS: BP 127/74; PULSE 57; RESP 18; TEMP 36.6; O2SAT 100
--- NOTE | 2023-07-12 09:18 | PC.NURSE ---
Pt stated taht she has taken augmentin and amoxil before and did fine.
== END 2023-07-12 09:17 | disposition home or self-care (01) ==
PROVIDERS: Emergency Provider Nurse Practitioner Family; PCP Nurse Practitioner Family
DX: S61.451A Open bite of right hand, initial encounter (principal); W54.0XXA Bitten by dog, initial encounter
CPT/HCPCS: 73130; 99212; 99214; G0463

== ENCOUNTER 2023-07-15 07:42 | Outpatient (CLI) | payer BC, SELFPAY ==
--- NOTE | 2023-07-15 07:47 | FL_ITS ---
FINAL REPORT CLINICAL HISTORY: .dap 3904.63 ft 3.37 FINDINGS: UPPER GI WITH SBFT HISTORY: Acute epigastric pain. PROCEDURE: The patient ingested barium. Effervescent crystals were also administered. Spot and overhead films were obtained. Additional barium was administered for a SBFT. Number of images: 38 Fluoro time: 3 minutes 37 seconds DAP: 3904.63 uGym2. FINDINGS: UGI: The esophagus is normal. There is a small sliding-type hiatal hernia. Gastroesophageal reflux was demonstrated to the midesophagus. There are postoperative changes of gastric sleeve. The stomach empties appropriately. The duodenal bulb is normal. SBFT: The quality systems engineer film is normal. There is no evidence of obstruction. The mucosal fold pattern is normal. The terminal ilium is normal. IMPRESSION: Postoperative changes of gastric sleeve with small sliding-type hiatal hernia and gastroesophageal reflux. Films reviewed , interpreted and dictated by Dr. Light. Transcribed by Steve Daniels PA-C. Reviewed, Interpreted and Dictated by Jace Light III, MD Transcribed by KELSEY Hahn Authenticated and [facility]
[2023-07-15] MEDS: DIATRIZOATE MEGLUMINE(GASTROGRAFIN) 66%-10% 120ML 20 ML PO (08:32)
[2023-07-15] MEDS: BARIUM SULFATE(LIQUID E-Z-PAQUE);355ML BOTTLE 355 ML PO (08:32)
[2023-07-15] MEDS: BARIUM SULFATE (E-Z-HD 340GM);135ML BOTTLE 135 ML PO (08:33)
== END 2023-07-15 23:59 | disposition home or self-care (01) ==
LOC: RAD 07:43
PROVIDERS: PCP Nurse Practitioner Family; Visit Provider Nurse Practitioner Family
DX: R10.10 Upper abdominal pain, unspecified (principal)
CPT/HCPCS: 74246; 74248

== ENCOUNTER 2023-08-06 14:05 | Outpatient (CLI) | payer BC, SELFPAY | END 2023-08-06 23:59 | disposition home or self-care (01) | LOC: LAB.DROPOF 08-07 14:05 | PROVIDERS: PCP Student in an Organized Health Care Education/Training Program; Visit Provider Student in an Organized Health Care Education/Training Program | DX: N39.0 Urinary tract infection, site not specified (principal); B96.29 Other Escherichia coli [E. coli] as the cause of diseases classified elsewhere | CPT/HCPCS: 87086; 87088; 87186 ==

== ENCOUNTER 2023-08-19 07:22 | Outpatient (CLI) | payer BC, SELFPAY ==
--- NOTE | 2023-08-19 07:23 | CT_ITS ---
FINAL REPORT TECHNIQUE: Noncontrast exam CLINICAL HISTORY: flank pain, hematuria COMPARISON: None FINDINGS: Abdomen: Lung bases are clear. Liver, spleen, pancreas and adrenal glands have a normal CT appearance in their limited unenhanced state. The gallbladder has been surgically resected, and a gastric sleeve procedure has been performed. The kidneys show no stone disease. There is fullness of the left renal collecting system, favor parapelvic cysts over hydronephrosis. No obvious renal mass is present. No ureteral stones are present. Pelvis: No distal ureteral stones are seen. Bladder is unremarkable. No fluid collection or adenopathy is seen. The appendix is normal in appearance. The uterus and ovaries are unremarkable in appearance. IMPRESSION: No evidence of upper urinary tract stone disease Fullness of the left renal collecting system, favor parapelvic cysts over hydronephrosis. Reviewed, Interpreted and Dictated by Leeanne Davies MD Transcribed by Shy Oh Authenticated and [facility]
== END 2023-08-19 23:59 | disposition home or self-care (01) ==
LOC: RAD 07:23
PROVIDERS: PCP Nurse Practitioner Family; Visit Provider Student in an Organized Health Care Education/Training Program
DX: R31.9 Hematuria, unspecified (principal); R10.9 Unspecified abdominal pain
CPT/HCPCS: 74176

== ENCOUNTER 2023-09-09 15:59 | Outpatient (CLI) | payer BC, SELFPAY ==
[2023-09-09 15:32] LABS: Microscopic, Urine URINE MICROSCOPIC (MICROSCOPIC)
[2023-09-09 16:36] LABS: Appearance,Urine CLEAR (Clear); Blood, Urine Negative (Negative); Color,Urine YELLOW (Yellow); Glucose,Urine (UA) TRACE (Negative); Ketones,Urine Negative (Negative); Leukocyte Esterase,Urine Negative (Negative); Nitrate,Urine POSITIVE (Negative); Protein,Urine TRACE (Negative); Specific Gravity, Urine >= 1.030 (1.005-1.030)
[2023-09-09 16:39] LABS: Bacteria,Urine 4+ /lpf; Bilirubin,Urine 1+ (Negative)
[2023-09-18 08:34] LABS: Atopobium vaginae Low - 0 Score (.); BVAB2 Low - 0 Score (.); Candida albicans NAA Negative (Negative); Candida glabrata Positive (Negative); Chlamydia Trachomatis NAA Negative (Negative); HSV 1 NAA Negative (Negative); HSV 2 NAA Negative (Negative); Megasphaera 1 Low - 0 Score (.); Neisseria gonorrhoeae NAA Negative (Negative); Trich vag NAA Negative (Negative)
== END 2023-09-09 23:59 | disposition home or self-care (01) ==
LOC: LAB.DROPOF 15:59
PROVIDERS: PCP Urology; Visit Provider Urology
DX: N39.0 Urinary tract infection, site not specified (principal); R82.90 Unspecified abnormal findings in urine; N28.89 Other specified disorders of kidney and ureter
CPT/HCPCS: 81001; 87086; 87491; 87529; 87591; 87661; 87798; 87801

== ENCOUNTER 2023-09-24 13:38 | Outpatient (CLI) | payer BC, SELFPAY ==
--- NOTE | 2023-09-24 13:39 | US_ITS ---
FINAL REPORT CLINICAL HISTORY: poss area seen on sbft COMPARISON: None FINDINGS: RENAL ULTRASOUND Ultrasound images of the kidneys were obtained. Incidental note is made of a hyperechoic lesion in the anterior liver measuring up to 19 mm. The right kidney measures 10.5 cm in length. It is normal echogenicity. There is no hydronephrosis. The left kidney measures 10.3 cm in length. There is a 15 mm cyst in the central left kidney. There is no hydronephrosis. IMPRESSION: Unremarkable renal ultrasound. Incidental indeterminate hepatic lesion. Consider follow-up CT or MRI with contrast using hemangioma protocol. Reviewed, Interpreted and Dictated by Leeanne Davies MD Transcribed by Fidelia Ugalde Authenticated and [facility]
== END 2023-09-24 23:59 | disposition home or self-care (01) ==
LOC: RAD 13:39
PROVIDERS: PCP Nurse Practitioner Family; Visit Provider Urology
DX: N28.89 Other specified disorders of kidney and ureter (principal)
CPT/HCPCS: 76770

== ENCOUNTER 2023-10-11 09:21 | Outpatient (CLI) | payer BC, SELFPAY ==
--- NOTE | 2023-10-11 09:22 | CT_ITS ---
FINAL REPORT TECHNIQUE: Axial CT images of the abdomen and pelvis were obtained before and after the administration of IV contrast. Oral contrast was administered.This study was performed with techniques to keep radiation doses as low as reasonably achievable (ALARA). Individualized dose reduction techniques using automated exposure control or adjustment of mA and/or kV according to the patient''s size were employed. CLINICAL HISTORY: renal mass COMPARISON: Renal ultrasound 09/24/[address] abdomen pelvis 08/19/2023 FINDINGS: Abdomen: There is a calcified granuloma at the right lung base. There are postoperative changes from gastric sleeve surgery and cholecystectomy. The heart is normal in size. There is an 11 mm mass in the right hepatic lobe which appears to be a cyst with a nonspecific appearance. This could represent hemangioma or other mass. . The spleen is unremarkable. No adrenal masses present. The pancreas has an unremarkable appearance. There are low-attenuation areas in the left renal hilum which do not show contrast-enhancement measuring up to 17 mm which are consistent with parapelvic cysts. There is no evidence of renal mass. There is no hydronephrosis. The aorta is normal in caliber. Precontrast images demonstrate no evidence of nephrolithiasis. Pelvis: The appendix is normal. The urinary bladder is unremarkable. There is a small amount of pelvic free fluid which is likely physiologic. There is no evidence of mass or adenopathy. There is no evidence of bowel obstruction. There are postoperative changes in the lumbosacral junction. An IUD is present in the uterus. IMPRESSION: Left renal parapelvic cysts. 11 mm mass right hepatic lobe which is nonspecific and could represent hemangioma. If indicated, follow-up CT or liver MRI could be obtained. Reviewed, Interpreted and Dictated by Jace Light III, MD Transcribed by Fidelia Ugalde Authenticated and [facility] [place] [place]
[2023-10-11] MEDS: IOPAMIDOL-370 (76%);100ML BOTTLE 75 ML IV (10:01)
[2023-10-11] MEDS: SODIUM CHLORIDE 0.9% 10ML SYR (RAD ONLY) 10 ML IV (10:01)
== END 2023-10-11 23:59 | disposition home or self-care (01) ==
LOC: RAD 09:22
PROVIDERS: PCP Nurse Practitioner Family; Visit Provider Urology
DX: N28.89 Other specified disorders of kidney and ureter (principal)
CPT/HCPCS: 74178; Q9967

== ENCOUNTER 2023-10-18 08:27 | Day surgery (SDC) | payer BC, SELFPAY ==
[2023-10-16 12:53] VITALS: BMI 31.7
[2023-10-18 08:43] VITALS: BP 124/41; PULSE 70; RESP 18; TEMP 36.1; O2SAT 99
--- NOTE | 2023-10-18 09:21 | P.PCN_ITS ---
[facility] Procedure Note Date: 10/18/23 Time: 09: Procedure Note:: Chart review: Her CT scan 10/25 shows parapelvic renal cysts. She is troubled with recurrent urinary tract infections. She often feels like she has a urinary tract infections but antibiotics are not helpful. She has been on Estrace, Ditropan, and Macrobid. She had an E. coli UTI documented 08/25. Preop diagnosis: recurrent UTI Postop diagnosis: recurrent UTI/urethritis Operative note: The patient was brought to the cystoscopy suite. She is prepped and draped in the usual fashion. She underwent flexible cystoscopy. She has mild to moderate urethritis. The patient's bladder is [place] pink in color throughout without evidence of bladder stone tumor hemorrhage or infection. The ureteral orifices are normal bilaterally with clear E flux of urine. She tolerated the procedure well.
[2023-10-18] MEDS: LACTATED RINGERS 1000ML 1,000 ML 25 ML IV (09:22)
[2023-10-18] MEDS: LIDOCAINE 2% UROJET 10ML 10 ML UR (09:22)
[2023-10-18 09:25] VITALS: BP 124/73; PULSE 66; RESP 18; TEMP 36.6; O2SAT 97
[2023-10-18 14:09] LABS: Microscopic,Cath URINE MICROSCOPIC (MICROSCOPIC)
[2023-10-18 14:14] LABS: Appearance,Urine/Cath CLEAR (Clear); Bilirubin,Cath Negative (Negative); Blood, Urine/Cath Negative (Negative); Color,Urine/Cath YELLOW (Yellow); Glucose,Urine/Cath (UA) Negative (Negative); Ketones,Urine/Cath Negative (Negative); Leukocyte Esterase,Cath Negative (Negative); Nitrate,Cath Negative (Negative); PH,Urine/Cath 6.5 (5.0-8.5); Protein,Urine/Cath Negative (Negative); Specific Gravity, Urine/Cath 1.015 (1.005-1.030); Urobilinogen,Cath 0.2 EU/dl (0.2)
[2023-10-18 14:31] LABS: Bacteria,Urine/Cath TRACE /lpf
== END 2023-10-18 09:32 | disposition home or self-care (01) ==
PROVIDERS: PCP Nurse Practitioner Family; Visit Provider Urology
PROC: 0TJB8ZZ Inspection of Bladder, Via Natural or Artificial Opening Endoscopic (ICD-10-PCS; CPT 52000; principal; 2023-10-18 09:45)
DX: N34.2 Other urethritis (principal); N28.1 Cyst of kidney, acquired
CPT/HCPCS: 52000; 81001; 87086; J7120

== ENCOUNTER 2023-10-25 16:30 | Emergency (ER) | payer BC, SELFPAY ==
[2023-10-25 16:37] VITALS: BP 106/44; PULSE 69; O2SAT 97
--- NOTE | 2023-10-25 16:59 | HMH.EDGENADL ---
Discharge Plan Disposition Patient Disposition: Home, Self-Care Chief Complaint: Headache Prescriptions Prescriptions: No Action buspirone 5 mg tablet 5 mg PO DAILY Wegovy 2.4 mg/0.75 mL pen injector 0.5 mg SQ WEEKLY phenazopyridine 100 mg tablet 100 mg PO QPC PRN (Reason: pain) 2 Days Qty: 6 0RF estradiol 0.01 % (0.1 mg/gram) cream See Rx Instructions vaginal .COMPLEX Qty: 42.5 2RF Rx Instructions: Using finger technique daily for two weeks and then twice weekly vaginally; nitrofurantoin macrocrystal [Macrodantin] 100 mg capsule 100 mg PO HS Qty: 30 0RF Rx Instructions: must administer with a meal/food oxybutynin chloride 10 mg tablet extended release 24hr 10 mg PO DAILY Qty: 90 3RF bupropion HCl 300 mg tablet extended release 24 hr 300 mg PO DAILY Mirena 21 mcg/24 hours (8 yrs) 52 mg intrauterine device 1 device intrauterine ONCE fluconazole 150 mg tablet See Rx Instructions .Route .COMPLEX Qty: 6 0RF Rx Instructions: One Daily for three days and then once weekly; mupirocin 2 % ointment 1 applic topical TID 7 Days Qty: 15 0RF escitalopram oxalate 10 mg tablet 10 mg PO DAILY Patient Comments: TAKE 1 TABLET BY MOUTH ONCE DAILY bupropion HCl 150 mg tablet extended release 24 hr 150 mg PO DAILY Patient Comments: TAKE 1 TABLET BY MOUTH EVERY 24 HOURS diazepam [Valium] 5 mg tablet 5 mg PO BID PRN (Reason: back pain) Qty: 6 0RF naproxen 500 mg tablet 500 mg PO TID PRN (Reason: pain) Qty: 20 0RF Referrals Follow up/Referrals: Mary Beth Cm APRN [Primary Care Provider] - See instructions Activity Restrictions/Add. Instructions Additional Instructions/Restrictions: Call your family doctor to establish care for this visit to the emergency department and schedule follow-up within 48 hours to ensure improvement. If you have any worsening of your condition or any other concerning signs or symptoms, return to the emergency department or your primary care doctor for further evaluation. Clinical Impressions Clinical Impression: Migraine Print Language Print Language: Faroese Discharge ED Provider: Polo Latham [facility] Adult HPI General Chief complaint: Headache Stated complaint: migraine Time Seen by Provider: 10/25/23 16:39 History of Present Illness HPI narrative: Please note that above description of symptoms, in this electronic medical record under categorization of recalled from ER triage doctor by RN are reflective of an initial nursing assessment, however, is not reflective of my full history and physical exam that was personally taken and clarified. Consequentially, this preceding description of symptoms, which may include the patient's categorized chief complaint in the EMR, do not reflect my personal clinical impression, and the ultimate description of history of present illness and patient stated complaints should be deferred to this section of the note. Unless stated otherwise or congruent with this section of the note, additional signs, symptoms, or incongruence should be interpreted as inaccurate with my clinical impression. Related Data Home Medications ?Medication ?Instructions ?Recorded ?Confirmed bupropion HCl 300 mg 24 hr tablet, 300 mg PO DAILY Anxiety 07/28/21 10/18/23 extended release bupropion HCl 150 mg 24 hr tablet, 150 mg PO DAILY Anxiety 07/29/22 10/18/23 extended release escitalopram oxalate 10 mg tablet 10 mg PO DAILY Anxiety 07/29/22 10/18/23 levonorgestrel 21 mcg/24 hr (up to 1 device intrauterine ONCE 05/02/23 10/18/23 8 years) 52 mg intrauterine device (Mirena) buspirone 5 mg tablet 5 mg PO DAILY 07/05/23 10/18/23 semaglutide (weight loss) 2.4 0.5 mg SQ WEEKLY 08/06/23 10/18/23 mg/0.75 mL subcutaneous pen injector (Wegovy) Previous Rx's ?Medication ?Instructions ?Recorded diazepam 5 mg tablet (Valium) 5 mg PO BID PRN back pain #6 tabs 05/0
[2023-10-25 17:09] VITALS: BP 106/44; PULSE 66; RESP 20; TEMP 36.8; O2SAT 96; BMI 31.3
[2023-10-25 17:53] VITALS: BP 104/57; PULSE 101; RESP 18; O2SAT 97
[2023-10-25 18:00] VITALS: BP 100/71; PULSE 57; O2SAT 95
[2023-10-25 18:30] VITALS: BP 105/61; PULSE 64; O2SAT 96
[2023-10-25 19:27] VITALS: BP 110/66; PULSE 67; RESP 17; TEMP 36.7; O2SAT 98
== END 2023-10-25 19:29 | disposition home or self-care (01) ==
PROVIDERS: Emergency Provider Emergency Medicine; PCP Nurse Practitioner Family
DX: G43.909 Migraine, unspecified, not intractable, without status migrainosus (principal)
CPT/HCPCS: 96365; 96375; 99284; J0780; J1100; J1200; J1885; J3475; J7120

== ENCOUNTER 2023-12-07 12:10 | Emergency (ER) | payer BC, SELFPAY ==
--- NOTE | 2023-12-07 12:26 | XR_ITS ---
PROCEDURE INFORMATION: Exam: XR Left Foot Exam date and time: 12/07/2023 12:32 PM Age: 43 years old Clinical indication: Pain; Foot; Left TECHNIQUE: Imaging protocol: Radiologic exam of the left foot. Views: 3 or more views. COMPARISON: No relevant prior studies available. FINDINGS: Bones/joints: Small plantar and small posterior calcaneal bone spurs. Os cuboideum. No acute fracture or dislocation. No erosions or periosteal reaction. Soft tissues: Calcifications in the plantar fascia region. IMPRESSION: 1. Small plantar and small posterior calcaneal bone spurs. 2. Calcifications in the plantar fascia region suggesting prior or chronic plantar fasciitis.
--- NOTE | 2023-12-07 12:26 | XR_ITS ---
PROCEDURE INFORMATION: Exam: XR Left Ankle Exam date and time: 12/07/2023 12:33 PM Age: 43 years old Clinical indication: Pain; Ankle; Left TECHNIQUE: Imaging protocol: Radiologic exam of the left ankle. Views: 3 or more views. COMPARISON: CR XR FOOT LT MIN 3V 12/07/2023 12:32 PM FINDINGS: Bones/joints: Small plantar and small posterior calcaneal bone spurs. Os cuboideum. No acute fracture or dislocation. No erosions or periosteal reaction. Soft tissues: Calcifications in the plantar fascia region. IMPRESSION: 1. Small plantar and small posterior calcaneal bone spurs. 2. Calcifications in the plantar fascia region suggesting prior or chronic plantar fasciitis.
[2023-12-07 12:31] VITALS: BP 99/67; PULSE 64; RESP 18; TEMP 36.8; O2SAT 100; BMI 30.1
--- NOTE | 2023-12-07 13:18 | ED_ITS ---
Discharge Plan Disposition Patient Disposition: Home, Self-Care Condition: Good Prescriptions Prescriptions: New ibuprofen 800 mg tablet 800 mg PO TID PRN (Reason: pain) Qty: 30 0RF No Action buspirone 5 mg tablet 5 mg PO DAILY Wegovy 2.4 mg/0.75 mL pen injector 0.5 mg SQ WEEKLY phenazopyridine 100 mg tablet 100 mg PO QPC PRN (Reason: pain) 2 Days Qty: 6 0RF bupropion HCl 300 mg tablet extended release 24 hr 300 mg PO DAILY Mirena 21 mcg/24 hours (8 yrs) 52 mg intrauterine device 1 device intrauterine ONCE estradiol 0.01 % (0.1 mg/gram) cream See Rx Instructions vaginal .COMPLEX Qty: 42.5 2RF Rx Instructions: Using finger technique daily for two weeks and then twice weekly vaginally; nitrofurantoin macrocrystal [Macrodantin] 100 mg capsule 100 mg PO Q24H 30 Days Qty: 30 1RF Rx Instructions: must administer with a meal/food oxybutynin chloride 10 mg tablet extended release 24hr 10 mg PO DAILY Qty: 90 3RF fluconazole 150 mg tablet See Rx Instructions .Route .COMPLEX Qty: 6 0RF Rx Instructions: One Daily for three days and then once weekly; mupirocin 2 % ointment 1 applic topical TID 7 Days Qty: 15 0RF escitalopram oxalate 10 mg tablet 10 mg PO DAILY Patient Comments: TAKE 1 TABLET BY MOUTH ONCE DAILY bupropion HCl 150 mg tablet extended release 24 hr 150 mg PO DAILY Patient Comments: TAKE 1 TABLET BY MOUTH EVERY 24 HOURS diazepam [Valium] 5 mg tablet 5 mg PO BID PRN (Reason: back pain) Qty: 6 0RF naproxen 500 mg tablet 500 mg PO TID PRN (Reason: pain) Qty: 20 0RF Referrals Follow up/Referrals: Mary Beth Cm APRN [Primary Care Provider] - See instructions Activity Restrictions/Add. Instructions Additional Instructions/Restrictions: Copy of x-ray provided. Please give to alarm security or surveillance monitor. Make appointment for next week. Take medication as prescribed. Clinical Impressions Clinical Impression: Peroneal tendonitis Qualifiers: Laterality: left Qualified Code(s): M76.72 - Peroneal tendinitis, left leg Instructions Patient Instructions: Peroneal Tendinopathy Print Language Print Language: Wolof Discharge ED Provider: Carol Saenz [facility] [place] General Stated complaint: LT foot pain- no inj Mode of Arrival: Ambulatory Source of Information: Patient Time Seen by Provider: 12/07/23 13:17 Description of Symptoms (Recalled from Triage Doc. by RN): LEFT FOOT ANKLE PAIN HEENT Symptoms (Recalled from RN notes): No Resp Symptoms (Recalled from RN notes): No Skin Symptoms (Recalled from RN notes): No MS Symptoms (Recalled from RN notes): Yes Functional Status (Recalled from RN notes): PAINFUL TO WALK History of Present Illness Provider Complaint: pt reports that she took off running a couple of days ago and then the next day felt left foot and ankle pain. She reports that she has had a long history of plantar fasciitis and sees podiatry. She has not taken anything for her symptoms. Related Data Home Medications ?Medication ?Instructions ?Recorded ?Confirmed bupropion HCl 300 mg 24 hr tablet, 300 mg PO DAILY Anxiety 07/28/21 12/03/23 extended release bupropion HCl 150 mg 24 hr tablet, 150 mg PO DAILY Anxiety 07/29/22 12/03/23 extended release escitalopram oxalate 10 mg tablet 10 mg PO DAILY Anxiety 07/29/22 12/03/23 levonorgestrel 21 mcg/24 hr (up to 1 device intrauterine ONCE 05/02/23 12/03/23 8 years) 52 mg intrauterine device (Mirena) buspirone 5 mg tablet 5 mg PO DAILY 07/05/23 12/03/23 semaglutide (weight loss) 2.4 0.5 mg SQ WEEKLY 08/06/23 12/03/23 mg/0.75 mL subcutaneous pen injector (Wegovy) Previous Rx's ?Medication ?Instructions ?Recorded diazepam 5 mg tablet (Valium) 5 mg PO BID PRN back pain #6 tabs 07/07/23 naproxen 500 mg tablet 500 mg PO TID PRN pain #20 tabs 07/07/23 mupirocin 2 % topical ointment 1 applic topical TID 7 days #15 07/12/23 grams phenazopyridine 100 mg tablet 100 mg PO QPC PRN pain 2 days #6 08/06/23 tabs fluconazole 150 mg tablet See Rx Instructions .Route 09/18/23 .COMPLEX #6 tabs estradiol 0.01% (0.1 mg/gram) See Rx Instructions vaginal 12/02/23 vaginal cream .COMPLEX #42.5 grams nitrofurantoin macrocrystal 100 mg 100 mg PO Q24H 30 days #30 caps 12/02/23 capsule (Macrodantin) oxybutynin chloride 10 mg 10 mg PO DAILY #90 tabs 12/02/23 tablet,extended release 24 hr ibuprofen 800 mg tablet 800 mg PO TID PRN pain #30 tabs 12/07/23 Allergies Allergy/AdvReac Type Severity Reaction Status Date / Time diphenhydramine Allergy Mild Verified 12/03/23 07:56 [DIPHENHYDRAMINE] hydrocodone [From LORTAB] Allergy Mild Verified 12/03/23 07:56 Penicillins [PENICILLINS] Allergy Mild Verified 12/03/23 07:56 tuberculin, purified protein Allergy Mild Verified 12/03/23 07:56 deriva [TUBERCULIN, PURIFIED PROTEIN DERIVA] Worker's Comp Is this a Worker's Comp case?: No [facility] Disclaimer: The information contained in this section may have been updated after the patient was seen, as this information can be updated by other users. Medical History Encounter for gastric sleeve procedure Depression Anxiety History of gastroesophageal reflux (GERD) Migraine Surgical History H/O lumpectomy History of back surgery History of tonsillectomy History of section History of cholecystectomy Family History Other Family history of DVT Family history of diabetes mellitus type II Family history of hyperlipidemia Family history of hypertension Social History Smoking Status: Never smoker alcohol intake: never substance use type: denies use current occupational status: employed Travel in the last 8 weeks: None housing: house ROS Obtained: Yes All systems reviewed & no additional complaints except as documented Constitutional Constitutional: Reports system reviewed and no additional complaints, except as documented Eyes Eyes: Reports system reviewed and no additional complaints, except as documented ENT Ears, Nose, Mouth, and Throat: Reports system reviewed and no additional complaints, except as documented Cardiovascular Cardiovascular: Reports system reviewed and no additional complaints, except as documented Respiratory Respiratory: Reports system reviewed and no additional complaints, except as documented Gastrointestinal Gastrointestingal: Reports system reviewed and no additional complaints, except as documented Genitourinary Female Genitourinary: Reports system reviewed and no additional complaints, except as documented Musculoskeletal Musculoskeletal: Reports system reviewed and no additional complaints, except as documented, Reports abnormal gait, Reports arthralgias, Reports joint swelling and Reports limited range of motion Integumentary/Breasts Skin/Breast: Reports system reviewed and no additional complaints, except as documented Neurologic Neurologic: Reports system reviewed and no additional complaints, except as documented and Reports abnormal gait Endocrine Endocrine: Reports system reviewed and no additional complaints, except as documented Hematologic/Lymphatic Henatologic/Lymphatic: Reports system reviewed and no additional complaints, except as documented Allergic/Immunologic Allergic/Immunologic: Reports system reviewed and no additional complaints, except as documented Physical Exam General General appearance: alert and in no apparent distress Head Head exam: atraumatic and normocephalic Eye Eye exam: Present normal appearance ENT ENT exam: Present normal exam and normal oropharynx Neck Neck exam: Present normal inspection Chest Chest inspection: Present normal inspection and symmetric chest wall rise Respiratory Respiratory exam: Present normal lung sounds bilaterally Cardiovascular Cardiovascular exam: Present regular rate and normal rhythm Abdominal Exam Abdominal exam: Present soft and normal bowel sounds Expanded Lower Extremity Exam Left: Hip/Pelvis exam: Present normal inspection Upper leg exam: Present normal inspection Knee exam: Present normal inspection Lower leg exam: Present normal inspection Ankle exam: Present tenderness and swelling Foot/toe exam: Present tenderness and swelling Neurovascular/Tendon exam: Present normal capillary refill Gait: observed and limited by pain Back Exam Back exam: Present normal inspection Neurological Exam Neurological exam: Present alert and oriented X3 Psychiatric Psychiatric exam: Present normal affect and normal mood Skin Skin exam: Present warm, dry and intact Lymphatic Lymphatic Findings: no adenopathy Medical Decision Making Medical Records Screening: Per USPSTF and CDC recommendations, given the prevalence of disease in our region, it is our hospital?s policy to screen for HIV and viral Hepatitis for all patients aged 18 and over and those with ongoing risk factors. Felipe Inquiry Pt receiving controlled substance: No Felipe was queried for this patient: No Vital Signs: 12/07/23 12:31 Temperature 98.2 F Temperature Source Oral Pulse Rate [Left Radial] 64 Respiratory Rate 18 Blood Pressure [Left Arm] 99/67 L Blood Pressure Mean [Left Arm] 77 02 Sat by Pulse Oximetry 100 Orders (Tests/Meds): ORDERS Category Date Time Status Ankle XR - Left minimum 3 Views [XR ankle LT min 3V] Exams 12/07/23 12:26 Taken Stat XR foot LT min 3V Stat Exams 12/07/23 12:26 Completed Radiology Data #1: Image(s): Foot/Toes FINDINGS: Bones/joints: Small plantar and small posterior calcaneal bone spurs. Os cuboideum. No acute fracture or dislocation. No erosions or periosteal reaction. Soft tissues: Calcifications in the plantar fascia region. IMPRESSION: 1. Small plantar and small posterior calcaneal bone spurs. 2. Calcifications in the plantar fascia region suggesting prior or chronic plantar fasciitis. #2: Image(s): Ankle Image Reviewed: Yes I reviewed the patient's radiology results and Yes I have reviewed radiologist's interpretation FINDINGS: Bones/joints: Small plantar and small posterior calcaneal bone spurs. Os cuboideum. No acute fracture or dislocation. No erosions or periosteal reaction. Soft tissues: Calcifications in the plantar fascia region.
[2023-12-07 14:14] VITALS: BP 99/67; PULSE 64; RESP 18; TEMP 36.8
== END 2023-12-07 14:15 | disposition home or self-care (01) ==
PROVIDERS: Emergency Provider Nurse Practitioner Family; PCP Nurse Practitioner Family
DX: M76.72 Peroneal tendinitis, left leg (principal)
CPT/HCPCS: 73610; 73630; 99213; G0381

== ENCOUNTER 2024-02-04 11:19 | Outpatient (CLI) | payer BC, SELFPAY | END 2024-02-04 23:59 | disposition home or self-care (01) | LOC: LAB.DROPOF 02-05 09:37 | PROVIDERS: PCP Student in an Organized Health Care Education/Training Program; Visit Provider Student in an Organized Health Care Education/Training Program | DX: R39.9 Unspecified symptoms and signs involving the genitourinary system (principal) | CPT/HCPCS: 87086; 87088; 87186 ==

== ENCOUNTER 2024-03-01 15:18 | Emergency (ER) | payer BC, SELFPAY ==
[2024-03-01 16:08] VITALS: BP 0/0; PULSE 0; RESP 0; TEMP -17.7; TEMP 0
== END 2024-03-01 16:08 | disposition left against medical advice (07) ==
PROVIDERS: Emergency Provider Nurse Practitioner Family; PCP Student in an Organized Health Care Education/Training Program
DX: Z53.21 Procedure and treatment not carried out due to patient leaving prior to being seen by health care provider (principal)

== ENCOUNTER 2024-03-12 08:25 | Outpatient (CLI) | payer BC, SELFPAY ==
[2024-03-12 18:30] LABS: Basophils # 0.1 K/mm3 (0-0.2); Basophils % 1.9 % (0.1-2.0); Eosinophils # 0.1 K/mm3 (0.0-0.4); Eosinophils % 3.3 % (0.1-12.0); Hematocrit 38.8 % (37.0-47.0); Hemoglobin 12.4 g/dL (12.2-16.2); Lymphocytes # 1.1 K/mm3 (0.7-4.5); Lymphocytes % 29.3 % (10-50); Mean Corpuscular Hemoglobin 31.6 pg (27.0-31.2); Mean Platelet Volume 12.1 fl (7.4-10.4); Monocytes # 0.3 K/mm3 (0.1-1.0); Monocytes % 8.4 % (1.7-9.3); Neutrophils # 2.1 K/mm3 (1.8-7.8); Neutrophils % 56.8 % (37.0-80.0); Platelet Count 218 K/mm3 (142-424); Red Blood Count 3.92 M/mm3 (4.20-5.40); Red Cell Distribution Width 13.4 % (11.5-17.5); White Blood Count 3.7 K/mm3 (4.8-10.8)
[2024-03-12 19:02] LABS: Alanine Aminotransferase 13 U/L (12-78); Albumin Level 3.7 g/dl (3.5-5.0); Albumin/Globulin Ratio 1.5 (1.1-1.8); Alkaline Phosphatase 45 U/L (38-126); Aspartate Amino Transferase 24 U/L (14-36); Bilirubin,Total 0.7 mg/dl (0.2-1.3); Blood Urea Nitrogen 7 mg/dl (7-17); Calcium 9.5 mg/dl (8.4-10.2); Carbon Dioxide 27 mmol/L (22.0-30.0); Chloride 106 mmol/L (98-107); Estimated Glomerular Filt Rate 68 ml/min (>60); GFR (African American) 82 ML/MIN (>60); Globulin 2.5 g/dL (1.3-3.2); Glucose 65 mg/dl (74-100); Sodium 138 mmol/L (136-145); Total Protein,Serum 6.2 g/dl (6.3-8.2)
[2024-03-12 19:04] LABS: Anion Gap 9.3 mEq/L (5-15); Potassium 4.3 mmoL/L (3.5-5.1)
[2024-03-12 20:34] LABS: HIV Combo NEGATIVE (Negative)
[2024-03-12 20:43] LABS: Hepatitis C Ab Qual. W/ RFX NEGATIVE (Negative)
== END 2024-03-12 23:59 | disposition home or self-care (01) ==
LOC: LAB.DROPOF 03-13 10:28
PROVIDERS: PCP Student in an Organized Health Care Education/Training Program; Visit Provider Student in an Organized Health Care Education/Training Program
DX: R39.9 Unspecified symptoms and signs involving the genitourinary system (principal); N30.00 Acute cystitis without hematuria; Z11.4 Encounter for screening for human immunodeficiency virus [HIV]; Z11.59 Encounter for screening for other viral diseases
CPT/HCPCS: 80053; 85025; 86803; 87086; 87389

== ENCOUNTER 2024-08-14 14:30 | Outpatient (CLI) | payer BC, SELFPAY | END 2024-08-14 23:59 | disposition home or self-care (01) | LOC: LAB.DROPOF 23:03 | PROVIDERS: PCP Nurse Practitioner Family; Visit Provider Nurse Practitioner Family | DX: R30.0 Dysuria (principal) | CPT/HCPCS: 87086 ==